=== PATIENT | female | born 1990 | race Caucasian/White ===

== ENCOUNTER 2016-04-24 18:03 | Emergency (ER) | payer OTHER ==
[2016-04-24 18:09] VITALS: BP 153/90; PULSE 89; RESP 17; TEMP 99.7
--- NOTE | 2016-04-24 19:15 | ED ---
General Adult HPI - General Chief complaint: ENT Stated complaint: FB IN LEFT EAR Time Seen by Provider: 04/24/16 19:09 Source: patient, RN notes reviewed Mode of arrival: ambulatory Limitations: no limitations - History of Present Illness Initial comments: This is a 25yo female who presents with a garlic clove stuck in the left ear. Patient states she puts garlic in her ear every month to prevent ear infections as she gets ear infections frequently. Patient states she fell asleep with the garlic in her ear and it's now stuck. Patient states she's had mild fevers over the past couple of days due to an ear infection. Patient has not been on antibiotics and was trying to avoid antibiotics by putting garlic in her ear. Patient notes pain in the left ear but denies cough, congestion, sore throat or headache. Patient denies any recent shortness breath, chest pain, abdominal pain, nausea/vomiting/diarrhea, back pain, numbness, tingling, hematuria, or visual changes, or any other complaints. - Related Data Home Medications Medication Instructions Recorded Confirmed HYDROcodone/APAP 5-325MG [[place] 1 tab PO Q6HR PRN 03/03/16 03/06/16 5-325] Previous Rx's Medication Instructions Recorded Docusate [Colace] 100 mg PO BID #28 capsule 03/06/16 HYDROcodone/APAP 10-325MG [[place] 1 tab PO Q6H PRN #50 tab 03/06/16 10-325] Amoxicillin 1,000 mg PO Q8H 10 Days 04/24/16 Ofloxacin 0.3% Otic Soln [Floxin 10 drops LEFT EAR BID 7 Days 04/24/16 0.3% Otic Soln] Allergies Allergy/AdvReac Type Severity Reaction Status Date / Time No Known Allergies Allergy Verified 03/03/16 09:13 Review of Systems ROS Statement: Those systems with pertinent positive or pertinent negative responses have been documented in the HPI. ROS Other: All systems not noted in ROS Statement are negative. Past Medical History Past Medical History: Supraventricular Tachycardia (SVT) Additional Past Medical History / Comment(s): fx left ankle- slipped on ice -has splint and using crutches History of Any Multi-Drug Resistant Organisms: None Reported Past Surgical History: Adenoidectomy, Ear Surgery, Heart Catheterization, Tonsillectomy Past Anesthesia/Blood Transfusion Reactions: No Reported Reaction Past Psychological History: Anxiety Smoking Status: Former smoker Past Alcohol Use History: Occasional Additional Past Alcohol Use History / Comment(s): quit smoking 2014, smoked for 8 yrs, < 1 PPD Past Drug Use History: None Reported - Past Family History Mother Family Medical History: Cancer General Exam - General Exam Comments Initial Comments: General: The patient is awake and alert, in no distress, and does not appear acutely ill. Eye: Pupils are equal, round and reactive to light, extra-ocular movements are intact. No nystagmus. There is normal conjunctiva bilaterally. No signs of icterus. Ears: Left tympanic membrane: There is a garlic clove stuck in the external ear canal. No drainage or blood noticed. Left tympanic membrane unable to be visualized due to foreign body. Right tympanic membrane: TM pink and pearly with intact cone of light bilaterally. Normal external ear canal on the right side. Nose: Nasal turbinates pink and moist Mouth and throat: There are moist mucous membranes and no oral lesions. Neck: The neck is supple, there is no tenderness or JVD. Cardiovascular: There is a regular rate and rhythm. No murmur, rub or gallop is appreciated. Respiratory: Lungs are clear to auscultation, respirations are non-labored, breath sounds are equal. No wheezes, stridor, rales, or rhonchi. Musculoskeletal: Normal ROM, no tenderness. Strength 5/5. Sensation intact. Radial Pulses equal bilaterally 2+. Neurological: A&O x 3. CN II-XII intact, There are no obvious motor or sensory deficits. Coordination appears grossly intact. Speech is normal. Skin: Skin is warm and dry and no rashes or lesions are noted. Psychiatric: Cooperative, appropriate mood & affect, normal judgment. Limitations: no limitations Course Vital Signs 04/24/16 18:06 Temperature 99.7 F H Pulse Rate 89 Respiratory 17 Rate Blood Pressure 153/90 O2 Sat by Pulse 97 Oximetry Medical Decision Making - Medical Decision Making This is a 25yo female presents with a garlic stuck in the left ear since last night. On physical exam Left tympanic membrane: There is a garlic clove stuck in the external ear canal. No drainage or blood noticed. Left tympanic membrane unable to be visualized due to foreign body. Right tympanic membrane: TM pink and pearly with intact cone of light bilaterally. Normal external ear canal on the right side. Patient has a mild fever in the EC today. After attempts at ear irrigation, alligator forceps and curettes the foreign body is unable to be removed. I discussed that patient will need to follow up with ENT on Wednesday. In the meantime I discussed that patient should flush her ear out several times per day over the weekend. Discussed that patient will be given a prescription for Floxin otic drops and oral amoxicillin. I discussed Tylenol and Motrin for pain. I discussed with patient that she should no longer a garlic in her ear. Discussed return parameters.Discussed that patient should follow up with PCP in one to 2 days or return to the EC for any worsening symptoms or for any further concerns. Patient was receptive to this plan and patient will be discharged home. I discussed his case with attending physician Dr. Montes who agrees the plan as stated above. Disposition Clinical Impression: Foreign body in ear Disposition: HOME SELF-CARE Condition: Good Instructions: Ear Foreign Body (ED) Additional Instructions: Please finish entire course of antibiotics and use eardrops as prescribed. Please use Tylenol or Motrin as needed for any pain or fever symptoms. Please follow-up with ENT on Wednesday. Over the weekend please rinse the ear several times per day while in the shower or with normal saline. Please use medication as discussed. Please follow-up with family doctor in the next 2 days of symptoms have not improved. Please return to emergency room if the symptoms increase or worsen or for any other concerns. Prescriptions: Amoxicillin 1,000 mg PO Q8H 10 Days Ofloxacin 0.3% Otic Soln [Floxin 0.3% Otic Soln] 10 drops LEFT EAR BID 7 Days Referrals: Gallo Moreno MD [Primary Care Provider] - 1-2 days Cr Sherman MD [STAFF PHYSICIAN] - 1-2 days Time of Disposition: 20:09
== END 2016-04-24 20:16 | disposition home or self-care (01) ==
LOC: EC 18:03
DX: T16.2XXA Foreign body in left ear, initial encounter (principal); I47.1 Supraventricular tachycardia; Z98.61 Coronary angioplasty status; Z87.891 Personal history of nicotine dependence
CPT/HCPCS: 99283

== ENCOUNTER 2017-05-06 10:50 | Emergency (ER) | payer OTHER ==
[2017-05-06 10:55] VITALS: RESP 18
--- NOTE | 2017-05-06 11:26 | ED ---
General Adult HPI - General Chief complaint: Extremity Injury, Lower Stated complaint: Ankle pain Time Seen by Provider: 05/06/17 10:55 Source: patient, family, RN notes reviewed Mode of arrival: ambulatory Limitations: no limitations - History of Present Illness Initial comments: This is a 26-year-old female presents emergency Department complaining of right ankle pain. Patient states it was last night and today there was blood around the ankle on the medial and lateral aspect. Patient denies any foot pain. Patient denies any knee pain or upper leg pain. She denies any other injury at this time. - Related Data Previous Rx's Medication Instructions Recorded Acetaminophen with Codeine 1 each PO Q4H #20 tab 05/06/17 [Tylenol w/codeine #3] Ibuprofen [Motrin] 600 mg PO Q6HR PRN #20 tab 05/06/17 Allergies Allergy/AdvReac Type Severity Reaction Status Date / Time No Known Allergies Allergy Verified 05/06/17 11:01 Review of Systems ROS Statement: Those systems with pertinent positive or pertinent negative responses have been documented in the HPI. ROS Other: All systems not noted in ROS Statement are negative. Past Medical History Past Medical History: Supraventricular Tachycardia (SVT) Additional Past Medical History / Comment(s): fx left ankle- slipped on ice -has splint and using crutches History of Any Multi-Drug Resistant Organisms: None Reported Past Surgical History: Adenoidectomy, Ear Surgery, Heart Catheterization, Tonsillectomy Past Anesthesia/Blood Transfusion Reactions: No Reported Reaction Past Psychological History: Anxiety Smoking Status: Current some day smoker Past Alcohol Use History: Occasional Past Drug Use History: None Reported - Past Family History Mother Family Medical History: Cancer General Exam - General Exam Comments Initial Comments: GENERAL Patient is well-developed and well-nourished. Patient is in mild distress. EYES Patient's pupils are equal and round. Extraocular motion is intact SKIN Unremarkable NEURO The patient is alert and oriented 3 PYSCH Patient has normal interpersonal interactions. MUSCULOSKELETAL Patient's ankle is tender medially and laterally is some mild swelling bilaterally patient does have some ecchymosis around the lateral medial malleolus. Limitations: no limitations Course Vital Signs 05/06/17 05/06/17 10:53 12:28 Temperature 95.6 F L 98 F Pulse Rate 76 78 Respiratory 18 18 Rate Blood Pressure 142/67 130/59 O2 Sat by Pulse 97 97 Oximetry Procedures - Orthopedic Splinting/Casting Injury #1 Side: right Lower Extremity Injury Location: short leg, ankle, foot Lower Extremity Immobilizer: posterior splint Medical Decision Making - Medical Decision Making X-ray of the ankle shows no acute abnormality. X-ray of the foot however does show a small avulsion fracture of the fifth metatarsal. Disposition Clinical Impression: Fracture of fifth metatarsal bone Disposition: HOME SELF-CARE Condition: Good Instructions: Foot Fracture in Adults (ED) Additional Instructions: Patient should be nonweightbearing. Prescriptions: Acetaminophen with Codeine [Tylenol w/codeine #3] 1 each PO Q4H #20 tab Ibuprofen [Motrin] 600 mg PO Q6HR PRN #20 tab PRN Reason: For pain Referrals: Ivis Vásquez DO [Doctor of Osteopathic Medicine] - 1-2 days Time of Disposition: 12:52
--- NOTE | 2017-05-06 11:39 | XR ---
EXAMINATION TYPE: XR ankle complete RT DATE OF EXAM: 05/06/2017 COMPARISON: NONE HISTORY: Pain TECHNIQUE: Frontal, lateral and oblique images of the right ankle are obtained. COMPARISON: None. FINDINGS: There is no acute fracture/dislocation evident. The joint spaces appear within normal ahmadi its. Lateral soft tissue swelling noted. IMPRESSION: There is no acute fracture or dislocation seen.
--- NOTE | 2017-05-06 12:21 | XR ---
EXAMINATION TYPE: XR foot complete RT DATE OF EXAM: 05/06/2017 CLINICAL HISTORY: pain TECHNIQUE: Frontal, lateral and oblique images of the right foot are obtained. COMPARISON: None. FINDINGS: Suspect nondisplaced fracture at the lateral base of the fifth metatarsal. Correlate with p oint tenderness. The joint spaces appear within normal limits. The overlying soft tissue appears un remarkable. IMPRESSION: Suspect nondisplaced fracture at the lateral base of the fifth metatarsal. Correlate with david rain rnelenita. ICD 10 closed FRACTURE, INITIAL EVALUATION
[2017-05-06 12:29] VITALS: BP 130/59; PULSE 78; TEMP 98
== END 2017-05-06 13:13 | disposition home or self-care (01) ==
LOC: EC 10:50
DX: S92.351A Displaced fracture of fifth metatarsal bone, right foot, initial encounter for closed fracture (principal); S90.01XA Contusion of right ankle, initial encounter; F17.200 Nicotine dependence, unspecified, uncomplicated; W10.9XXA Fall (on) (from) unspecified stairs and steps, initial encounter; Y93.89 Activity, other specified
CPT/HCPCS: 29515; 99283

== ENCOUNTER 2017-05-30 21:40 | Emergency (ER) | payer OTHER ==
[2017-05-30 21:51] VITALS: TEMP 98.2
[2017-05-30] MEDS ORDERED: IBUPROFEN 600 MG TAB PO STA (22:25)
--- NOTE | 2017-05-30 22:28 | ED ---
General Adult HPI - General Chief complaint: Extremity Injury, Lower Stated complaint: ankle injury Time Seen by Provider: 05/30/17 22:08 Source: patient, RN notes reviewed Mode of arrival: ambulatory Limitations: no limitations - History of Present Illness Initial comments: 26-year-old female presents to the emergency department for a chief complaint of right ankle pain. Patient states that earlier today she was helping her boyfriend clean his car when she stepped on a hose and twisted her ankle. Patient states she was seen in the emergency room she weeks ago for a sprain of the same ankle. Patient states she has full sensation in the ankle. She states she has pain when bearing weight on the right lower extremity in the ankle. Patient denies hitting her head in the fall. Patient had ibuprofen about 8 hours ago and Tylenol about 5 hours ago. She states they helped minimally with the pain. Patient denies any pain in the knee or hip on the right extremity. On 05/06/2017 patient presented to the emergency department for pain in the ankle after she rolled it. The radiologist read as a fracture of the fifth metatarsal. However she states she went to the orthopedic doctor and he said there was no fracture. she was instructed to wear the fracture boot for 2 weeks. She currently brought the fracture boot to the emergency department with her. - Related Data Home Medications Medication Instructions Recorded Confirmed Acetaminophen [Tylenol] 975 mg PO DAILY PRN 05/30/17 05/30/17 Ibuprofen [Motrin Ib] 400 mg PO Q6HR PRN 05/30/17 05/30/17 Previous Rx's Medication Instructions Recorded Acetaminophen-Codeine 300-30mg 1 tab PO Q6HR PRN #14 tablet 05/30/17 [Tylenol #3] Allergies Allergy/AdvReac Type Severity Reaction Status Date / Time No Known Allergies Allergy Verified 05/30/17 21:58 Review of Systems ROS Statement: Those systems with pertinent positive or pertinent negative responses have been documented in the HPI. ROS Other: All systems not noted in ROS Statement are negative. Past Medical History Past Medical History: Supraventricular Tachycardia (SVT) Additional Past Medical History / Comment(s): fx left ankle- slipped on ice -has splint and using crutches History of Any Multi-Drug Resistant Organisms: None Reported Past Surgical History: Adenoidectomy, Ear Surgery, Heart Catheterization, Tonsillectomy Past Anesthesia/Blood Transfusion Reactions: No Reported Reaction Past Psychological History: Anxiety Smoking Status: Current some day smoker Past Alcohol Use History: Occasional Past Drug Use History: None Reported - Past Family History Mother Family Medical History: Cancer General Exam Limitations: no limitations Respiratory exam: Present: normal lung sounds bilaterally. Absent: respiratory distress, wheezes, rales, rhonchi, stridor Cardiovascular Exam: Present: regular rate, normal rhythm, normal heart sounds. Absent: systolic murmur, diastolic murmur, rubs, gallop, clicks Extremities exam: Present: tenderness (Tenderness to the lateral malleolus of the right ankle and lateral right foot), normal capillary refill (Refill less than 2 seconds in lower extremities bilaterally), other (Pedal pulses 2+ in the lower extremities bilaterally. Neurovascular intact. Patient can move all toes and has full sensation in all toes and the right foot. Cap refill less than 2 seconds. Pedal pulse 2+.). Absent: full ROM (Limited flexion and extension of the right ankle.), pedal edema, joint swelling (There is mild swelling of the lateral right foot and ankle.), calf tenderness Course Vital Signs 05/30/17 21:48 Temperature 98.2 F Pulse Rate 100 Respiratory 16 Rate Blood Pressure 135/60 O2 Sat by Pulse 98 Oximetry Medical Decision Making - Medical Decision Making 26-year-old female presents to the emergency department for a chief complaint of right ankle pain. Patient states she was working on cleaning a car when she walked the greatest at the hose. She rolled her ankle. She states she was seen in the emergency department 2 weeks ago for a sprain of the same ankle. Patient tried ibuprofen and Tylenol with minimal relief. Her last dose of ibuprofen was 8 hours ago so she will be given another dose in the emergency department. Patient was given ice to put on the lower extremity. An x-ray of the right foot and ankle was ordered. 3 view right foot x-ray shows no fracture or dislocation. Three-view right ankle x-ray shows no fracture or dislocation. Mild soft tissue swelling is noted. Patient will continue to wear the fracture boot for the next few days. If pain persists past the next few days patient is instructed to follow-up with the orthopedist she saw a month ago. Patient will take ibuprofen and Tylenol 3 for pain relief. She was instructed to use ibuprofen first-line and if pain is severe to take Tylenol 3. Patient was educated on Rice. She was told to rest the foot as much as possible and ice it intermittently throughout the day. She will also elevate it whenever possible. She will return to the emergency Department if she develops worsening symptoms. Disposition Clinical Impression: Ankle pain, right Disposition: HOME SELF-CARE Condition: Good Instructions: Foot Sprain (ED), RICE Therapy (ED) Additional Instructions: Please take ibuprofen for pain relief. You may take Tylenol 3 if pain is severe. Please rest the foot as much as possible and keep it elevated. He may also ice it for pain relief. Please wear fracture boot for the next few days. If you still have pain after the next few days follow-up with orthopedics. Prescriptions: Acetaminophen-Codeine 300-30mg [Tylenol #3] 1 tab PO Q6HR PRN #14 tablet PRN Reason: Pain Referrals: Gallo Moreno MD [Primary Care Provider] - 1-2 days Time of Disposition: 22:44
--- NOTE | 2017-05-30 22:28 | XR ---
EXAMINATION TYPE: XR ankle complete RT DATE OF EXAM: 05/30/2017 COMPARISON: 05/06/2017 HISTORY: Pain TECHNIQUE: 3 views FINDINGS: I see no fracture nor dislocation. There is mild soft tissue swelling around the ankle join t. Joint spaces are normal. IMPRESSION: Mild soft tissue swelling similar to old exam. No fracture.
--- NOTE | 2017-05-30 22:29 | XR ---
EXAMINATION TYPE: XR foot complete RT DATE OF EXAM: 05/30/2017 COMPARISON: 05/06/2017 HISTORY: Pain TECHNIQUE: 3 views FINDINGS: I see no fracture nor dislocation. Metatarsals are intact. Joint spaces are normal. There a re no erosions. IMPRESSION: Negative right foot exam.
[2017-05-30 23:09] VITALS: BP 137/85; PULSE 83; RESP 18
== END 2017-05-30 23:09 | disposition home or self-care (01) ==
LOC: EC 21:40
DX: M25.571 Pain in right ankle and joints of right foot (principal); M79.89 Other specified soft tissue disorders; F17.200 Nicotine dependence, unspecified, uncomplicated; Z87.81 Personal history of (healed) traumatic fracture; Z98.890 Other specified postprocedural states; W18.30XA Fall on same level, unspecified, initial encounter; X50.1XXA Overexertion from prolonged static or awkward postures, initial encounter; Y93.89 Activity, other specified; Y92.89 Other specified places as the place of occurrence of the external cause
CPT/HCPCS: 99283

== ENCOUNTER 2017-12-28 17:44 | Emergency (ER) | payer OTHER ==
[2017-12-28] MEDS ORDERED: SODIUM CHLORIDE 0.9% 1,000 ML IV STA (18:31)
[2017-12-28] MEDS ORDERED: ACETAMINOPHEN TAB 500 MG TAB PO STA (18:38)
[2017-12-28] MEDS ORDERED: KETOROLAC 30 MG/ML 1 ML VIAL IVP STA (18:43)
--- NOTE | 2017-12-28 18:44 | ED ---
General Adult HPI - General Chief complaint: Upper Respiratory Infection Stated complaint: congestion/SOB Time Seen by Provider: 12/28/17 18:14 Source: patient, RN notes reviewed Mode of arrival: ambulatory Limitations: no limitations - History of Present Illness Initial comments: 27-year-old female with a past medical history of SVT corrected when she was a child presents to the emergency department for a chief complaint of shortness of breath times one day. Patient states she has had a cough for about 3 weeks. She denies any productivity of the cough. She admits to a history of asthma as a child but denies any symptoms as an adult. Patient states she smokes about one cigarette per week. Patient states she feels a sharp chest pain in the middle of her chest that is worse when taking a deep breath. She denies any radiation of the pain. Patient states she also feels a chest pressure. Patient states this all started about 7 hours ago. She states she has shortness of breath when walking up the stairs earlier today. She states she has also had congestion with a cough. Patient denies any recent hospitalizations, surgeries, travel outside of the [facility], leg swelling, oral contraceptives. She states she did have SVT but this was corrected with surgery as a child. Patient has no other complaints at this time includingabdominal pain, nausea or vomiting, headache, or visual changes. - Related Data Home Medications Medication Instructions Recorded Confirmed Acetaminophen [Tylenol] 1,000 mg PO Q4-6H PRN 12/28/17 12/28/17 Dayquill 5 mg PO BID PRN 12/28/17 12/28/17 Meloxicam [Mobic] 15 mg PO DAILY 12/28/17 12/28/17 Sertraline HCl [Zoloft] 100 mg PO DAILY 12/28/17 12/28/17 tiZANidine HCL [Zanaflex] 4 mg PO HS PRN 12/28/17 12/28/17 traZODone HCL 100 mg PO HS 12/28/17 12/28/17 Previous Rx's Medication Instructions Recorded Azithromycin [Zithromax Z-pack] 250 mg PO DIRECTED #6 tab 12/28/17 predniSONE 50 mg PO DAILY #5 tablet 12/28/17 Allergies Allergy/AdvReac Type Severity Reaction Status Date / Time No Known Allergies Allergy Verified 12/28/17 19:03 Review of Systems ROS Statement: Those systems with pertinent positive or pertinent negative responses have been documented in the HPI. ROS Other: All systems not noted in ROS Statement are negative. Past Medical History Past Medical History: Supraventricular Tachycardia (SVT) Additional Past Medical History / Comment(s): fx left ankle- slipped on ice -has splint and using crutches History of Any Multi-Drug Resistant Organisms: None Reported Past Surgical History: Adenoidectomy, Ear Surgery, Heart Catheterization, Orthopedic Surgery, Tonsillectomy Past Anesthesia/Blood Transfusion Reactions: No Reported Reaction Past Psychological History: Anxiety, Depression Smoking Status: Current some day smoker Past Alcohol Use History: Occasional Past Drug Use History: None Reported - Past Family History Mother Family Medical History: Cancer General Exam Limitations: no limitations General appearance: alert, in no apparent distress Head exam: Present: atraumatic, normocephalic, normal inspection Eye exam: Present: normal appearance, PERRL, EOMI. Absent: scleral icterus, conjunctival injection, periorbital swelling ENT exam: Present: normal exam, normal oropharynx (Uvula midline, non- erythematous, no tonsillar exudates noted bilaterally), mucous membranes moist, TM's normal bilaterally, normal external ear exam Neck exam: Present: normal inspection, full ROM. Absent: tenderness, meningismus, lymphadenopathy Respiratory exam: Present: normal lung sounds bilaterally. Absent: respiratory distress, wheezes (No wheezing noted bilaterally), rales, rhonchi, stridor Cardiovascular Exam: Present: regular rate, normal rhythm, normal heart sounds. Absent: systolic murmur, diastolic murmur, rubs, gallop, clicks Neurological exam: Present: alert, oriented X3, CN II-XII intact Psychiatric exam: Present: normal affect, normal mood Skin exam: Present: warm, dry, intact, normal color. Absent: rash, diaphoretic Course Vital Signs 12/28/17 12/28/17 12/28/17 18:05 18:38 20:52 Temperature 98.8 F 100.0 F H 100.6 F H Pulse Rate 114 H 72 Respiratory 18 16 Rate Blood Pressure 110/73 122/46 O2 Sat by Pulse 98 Oximetry EKG Findings - EKG Comments: EKG Findings:: Normal sinus rhythm, ventricular rate 92, ID interval 124, QTC 417 Medical Decision Making - Medical Decision Making 27 her old female since to the emergency department for a chief complaint of shortness of breath times one day. Patient has had a cough for about 3 weeks. She also complains of chest pain and pressure worse with inspiration. On presentation patient's vital signs showed a heart rate of 114. Patient has a low-grade fever of 100.0. Otherwise vitals are within normal limits. On exam patient's lungs are clear to auscultation bilaterally. There is no evidence of wheezing. CBC and CMP unremarkable. AST and ALT slightly elevated so patient will follow up with primary care for this. Urine was ordered and culture was sent. Due to patient's tachycardia 114 as well as her complaint of pleuritic chest pain d-dimer was ordered which was 4.64. CT chest showed no evidence for a pulmonary embolism. Chest x-ray showed no acute process. Lungs bases are clear. At this time patient will be treated with azithromycin as she has had a cough for 3 weeks. She will also be given a steroid to help with her symptoms. This is likely a viral upper respiratory infection. She will follow up with primary care in 1-2 days and return if she has any worsening symptoms. This case discussed with Dr. Escamilla. - Lab Data Result diagrams: 12/28/17 19:03 12/28/17 19:03 Lab Results 12/28/17 12/28/17 12/28/17 Range/Units 19:03 19:03 19:03 WBC 8.8 (3.8-10.6) k/uL RBC 5.00 (3.80-5.40) m/uL Hgb 13.5 (11.4-16.0) gm/dL Hct 41.5 (34.0-46.0) % MCV 83.1 (80.0-100.0) fL MCH 27.1 (25.0-35.0) pg MCHC 32.6 (31.0-37.0) g/dL RDW 13.7 (11.5-15.5) % Plt Count 215 (150-450) k/uL Neutrophils % 75 % Lymphocytes % 18 % Monocytes % 4 % Eosinophils % 1 % Basophils % 0 % Neutrophils # 6.6 (1.3-7.7) k/uL Lymphocytes # 1.6 (1.0-4.8) k/uL Monocytes # 0.4 (0-1.0) k/uL Eosinophils # 0.1 (0-0.7) k/uL Basophils # 0.0 (0-0.2) k/uL D-Dimer (<0.60) mg/L FEU Sodium 138 (137-145) mmol/L Potassium 3.9 (3.5-5.1) mmol/L Chloride 106 (98-107) mmol/L Carbon Dioxide 27 (22-30) mmol/L Anion Gap 5 mmol/L BUN 7 (7-17) mg/dL Creatinine 0.71 (0.52-1.04) mg/dL Est GFR (CKD-EPI)AfAm >90 (>60 ml/min/1.73 sqM) Est GFR (CKD-EPI)NonAf >90 (>60 ml/min/1.73 sqM) Glucose 102 H (74-99) mg/dL Plasma Lactic Acid Gavin 1.1 (0.7-2.0) mmol/L Calcium 8.4 (8.4-10.2) mg/dL Total Bilirubin 0.3 (0.2-1.3) mg/dL AST 185 H (14-36) U/L ALT 279 H (9-52) U/L Alkaline Phosphatase 59 (38-126) U/L Total Protein 5.2 L (6.3-8.2) g/dL Albumin 2.9 L (3.5-5.0) g/dL Urine Color Urine Appearance (Clear) Urine pH (5.0-8.0) Ur Specific [place] (1.001-1.035) Urine Protein (Negative) Urine Glucose (UA) (Negative) Urine Ketones (Negative) Urine Blood (Negative) Urine Nitrite (Negative) Urine Bilirubin (Negative) Urine Urobilinogen (<2.0) mg/dL Ur Leukocyte Esterase (Negative) Urine WBC (0-5) /hpf Ur Squamous Epith Cells (0-4) /hpf Urine Bacteria (None) /hpf Urine Mucus (None) /hpf Urine HCG, Qual (Not Detectd) 12/28/17 12/28/17 12/28/17 Range/Units 19:03 19:30 19:30 WBC (3.8-10.6) k/uL RBC (3.80-5.40) m/uL Hgb (11.4-16.0) gm/dL Hct (34.0-46.0) % MCV (80.0-100.0) fL MCH (25.0-35.0) pg MCHC (31.0-37.0) g/dL RDW (11.5-15.5) % Plt Count (150-450) k/uL Neutrophils % % Lymphocytes % % Monocytes % % Eosinophils % % Basophils % % Neutrophils # (1.3-7.7) k/uL Lymphocytes # (1.0-4.8) k/uL Monocytes # (0-1.0) k/uL Eosinophils # (0-0.7) k/uL Basophils # (0-0.2) k/uL D-Dimer 4.64 H (<0.60) mg/L FEU Sodium (137-145) mmol/L Potassium (3.5-5.1) mmol/L Chloride (98-107) mmol/L Carbon Dioxide (22-30) mmol/L Anion Gap mmol/L BUN (7-17) mg/dL Creatinine (0.52-1.04) mg/dL Est GFR (CKD-EPI)AfAm (>60 ml/min/1.73 sqM) Est GFR (CKD-EPI)NonAf (>60 ml/min/1.73 sqM) Glucose (74-99) mg/dL Plasma Lactic Acid Gavin (0.7-2.0) mmol/L Calcium (8.4-10.2) mg/dL Total Bilirubin (0.2-1.3) mg/dL AST (14-36) U/L ALT (9-52) U/L Alkaline Phosphatase (38-126) U/L Total Protein (6.3-8.2) g/dL Albumin (3.5-5.0) g/dL Urine Color Yellow Urine Appearance Cloudy H (Clear) Urine pH 5.5 (5.0-8.0) Ur Specific [place] 1.028 (1.001-1.035) Urine Protein 1+ H (Negative) Urine Glucose (UA) Negative (Negative) Urine Ketones Negative (Negative) Urine Blood Trace H (Negative) Urine Nitrite Negative (Negative) Urine Bilirubin Negative (Negative) Urine Urobilinogen 2.0 (<2.0) mg/dL Ur Leukocyte Esterase Large H (Negative) Urine WBC 23 H (0-5) /hpf Ur Squamous Epith Cells 12 H (0-4) /hpf Urine Bacteria Occasional H (None) /hpf Urine Mucus Occasional H (None) /hpf Urine HCG, Qual Not Detected (Not Detectd) Disposition Clinical Impression: Upper respiratory infection Disposition: HOME SELF-CARE Condition: Good Instructions: Upper Respiratory Infection (ED) Additional Instructions: Please take antibiotic as directed. Please follow-up with primary care in 1-2 days. Return immediately to the emergency department if you have any worsening symptoms. Prescriptions: Azithromycin [Zithromax Z-pack] 250 mg PO DIRECTED #6 tab predniSONE 50 mg PO DAILY #5 tablet Is patient prescribed a controlled substance at d/c from ED?: No Referrals: Gallo Moreno MD [Primary Care Provider] - 1-2 days Time of Disposition: 21:10
[2017-12-28 19:20] LABS: Basophils % (A) 0 %; Eosinophils # (A) 0.1 k/uL (0-0.7); Eosinophils % (A) 1 %; HCT 41.5 % (34.0-46.0); HGB 13.5 gm/dL (11.4-16.0); Lymphocytes # (A) 1.6 k/uL (1.0-4.8); Lymphocytes % (A) 18 %; MCH 27.1 pg (25.0-35.0); MCHC 32.6 g/dL (31.0-37.0); MCV 83.1 fL (80.0-100.0); Mean Platelet Volume 7.1; Monocytes # (A) 0.4 k/uL (0-1.0); Monocytes % (A) 4 %; Neutrophils # (A) 6.6 k/uL (1.3-7.7); Neutrophils % (A) 75 %; Platelet Count 215 k/uL (150-450); RDW 13.7 % (11.5-15.5); WBC 8.8 k/uL (3.8-10.6)
[2017-12-28 19:30] LABS: ALT 279 U/L (9-52); AST 185 U/L (14-36); Albumin 2.9 g/dL (3.5-5.0); Alkaline Phosphatase 59 U/L (38-126); Anion Gap 5 mmol/L; Blood Urea Nitrogen 7 mg/dL (7-17); Calcium 8.4 mg/dL (8.4-10.2); Carbon Dioxide 27 mmol/L (22-30); Chloride 106 mmol/L (98-107); Glucose 102 mg/dL (74-99); Potassium 3.9 mmol/L (3.5-5.1); Sodium 138 mmol/L (137-145); Total Bilirubin 0.3 mg/dL (0.2-1.3); Total Protein 5.2 g/dL (6.3-8.2)
[2017-12-28 19:45] LABS: Appearance,Urine Cloudy (Clear); Bacteria,Urine Occasional /hpf; Bilirubin,Urine Negative (Negative); Blood,Urine Trace (Negative); Color,Urine Yellow; Glucose,Urine (UA) Negative (Negative); Ketones,Urine Negative (Negative); Leukocyte Esterase,Urine Large (Negative); Mucus,Urine Occasional /hpf; Nitrite,Urine Negative (Negative); PH, Urine 5.5 (5.0-8.0); Protein,Urine 1+ (Negative); Specific Gravity,Urine 1.028 (1.001-1.035); Squamous Epithelial Cell,Urine 12 /hpf (0-4); WBC,Urine 23 /hpf (0-5)
--- NOTE | 2017-12-28 20:45 | CT ---
EXAMINATION TYPE: CT chest angio for PE with contrast and with 3-D reconstruction renderings DATE OF EXAM: 12/28/2017 COMPARISON: None. HISTORY: Mid chest pain and shortness of breath. CT DLP: 600.7 mGycm. Automated exposure control for dose reduction was used. CONTRAST: CT Chest for pulmonary embolism performed with with IV Contrast, patient injected with 65 m L of Isovue 370. 3-D reconstructions. FINDINGS: LUNGS: The lungs are grossly clear, there is no concerning parenchymal mass or nodule identified. T here is no pleural effusion or pneumothorax seen. The tracheobronchial tree is patent. MEDIASTINUM: There is moderate enhancement of the pulmonary artery and its branches; there is no CT e vidence for pulmonary embolism. There are no greater than 1 cm hilar or mediastinal lymph nodes. No c ardiomegaly. No pericardial effusion. OTHER: No additional significant abnormality is seen. IMPRESSION: NO ACUTE PROCESS.
[2017-12-28 20:54] VITALS: BP 122/46; PULSE 72; RESP 16; TEMP 100.6
--- NOTE | 2017-12-28 20:55 | XR ---
EXAMINATION: XR chest 2V DATE AND TIME: 12/28/2017 7:39 PM CLINICAL INDICATION: Pain TECHNIQUE: PA and lateral COMPARISON: 05/22/2005 FINDINGS: The overlying soft tissues are prominent. The lungs appear clear. The pleural spaces are negative. The cardiac silhouette is not enlarged. The remainder of the mediastinal silhouette is unremarkable. The skeletal structures and soft tissues are negative for acute findings. IMPRESSION: NO ACUTE PROCESS.
== END 2017-12-28 21:27 | disposition home or self-care (01) ==
LOC: EC 17:44
DX: J06.9 Acute upper respiratory infection, unspecified (principal); R00.0 Tachycardia, unspecified; F41.9 Anxiety disorder, unspecified; F32.9 Major depressive disorder, single episode, unspecified; F17.210 Nicotine dependence, cigarettes, uncomplicated; Z98.890 Other specified postprocedural states; Z79.1 Long term (current) use of non-steroidal anti-inflammatories (NSAID); Z79.899 Other long term (current) drug therapy
CPT/HCPCS: 36415; 93005; 85379; 80053; 83605; 85025; 81001; 81025; 87040; 87086; 71046; 71275; J1885; Q9967; 96374; 99285

== ENCOUNTER 2017-12-29 23:38 | Emergency (ER) | payer OTHER ==
[2017-12-30] MEDS ORDERED: SODIUM CHLORIDE 0.9% 1,000 ML IV ONE (01:38)
[2017-12-30] MEDS ORDERED: ONDANSETRON 4 MG/2 ML VIAL IVP STA (01:38)
[2017-12-30 01:56] LABS: Basophils % (A) 0 %; Eosinophils % (A) 0 %; HCT 42.7 % (34.0-46.0); HGB 13.5 gm/dL (11.4-16.0); Lymphocytes % (A) 10 %; MCH 26.9 pg (25.0-35.0); MCHC 31.7 g/dL (31.0-37.0); MCV 84.8 fL (80.0-100.0); Mean Platelet Volume 7.7; Monocytes # (A) 0.3 k/uL (0-1.0); Monocytes % (A) 3 %; Neutrophils # (A) 8.5 k/uL (1.3-7.7); Neutrophils % (A) 85 %; Platelet Count 295 k/uL (150-450); RBC 5.04 m/uL (3.80-5.40); RDW 13.9 % (11.5-15.5)
[2017-12-30 02:06] LABS: ALT 382 U/L (9-52); AST 216 U/L (14-36); Albumin 3.6 g/dL (3.5-5.0); Alkaline Phosphatase 76 U/L (38-126); Anion Gap 10 mmol/L; Blood Urea Nitrogen 8 mg/dL (7-17); Calcium 8.6 mg/dL (8.4-10.2); Carbon Dioxide 21 mmol/L (22-30); Chloride 108 mmol/L (98-107); Glucose 176 mg/dL (74-99); Sodium 139 mmol/L (137-145); Total Bilirubin 0.6 mg/dL (0.2-1.3); Total Protein 6.5 g/dL (6.3-8.2)
[2017-12-30 02:09] LABS: Potassium 4.8 mmol/L (3.5-5.1)
--- NOTE | 2017-12-30 03:50 | ED ---
Nausea/Vomiting/Diarrhea HPI - General Chief complaint: Nausea/Vomiting/Diarrhea Stated complaint: SOB Time Seen by Provider: 12/30/17 00:54 Source: patient Mode of arrival: ambulatory Limitations: no limitations - History of Present Illness Initial comments: This patient is a 27-year-old woman who presents to be evaluated for nausea and vomiting. The patient had been or use of health until a couple of days ago when she started having upper respiratory symptoms and a cough. She was seen here and started on azithromycin. Around 6:30 she started having nausea and vomiting as had a number of episodes since that time. No vomiting of blood or bile. She denies significant abdominal pain now. No change in bowel movements. MD complaint: nausea, vomiting Onset/Timin -: hour(s) Description of Vomiting: food contents Associated Abdominal Pain: No Consistency: constant Improves with: none Worsens with: none Associated Symptoms: cough - Related Data Home Medications Medication Instructions Recorded Confirmed Acetaminophen [Tylenol] 1,000 mg PO Q4-6H PRN 12/28/17 12/30/17 Dayquill 5 mg PO BID PRN 12/28/17 12/30/17 Meloxicam [Mobic] 15 mg PO DAILY 12/28/17 12/30/17 Sertraline HCl [Zoloft] 100 mg PO DAILY 12/28/17 12/30/17 tiZANidine HCL [Zanaflex] 4 mg PO HS PRN 12/28/17 12/30/17 traZODone HCL 100 mg PO HS 12/28/17 12/30/17 Previous Rx's Medication Instructions Recorded Azithromycin [Zithromax Z-pack] 250 mg PO DIRECTED #6 tab 12/28/17 predniSONE 50 mg PO DAILY #5 tablet 12/28/17 Ondansetron Odt [Zofran ODT] 4 mg PO Q8HR PRN #10 tab 12/30/17 Allergies Allergy/AdvReac Type Severity Reaction Status Date / Time No Known Allergies Allergy Verified 12/28/17 19:03 Review of Systems ROS Statement: Those systems with pertinent positive or pertinent negative responses have been documented in the HPI. ROS Other: All systems not noted in ROS Statement are negative. Constitutional: Denies: fever, chills ENT: Reports: congestion Respiratory: Reports: cough. Denies: dyspnea Cardiovascular: Denies: chest pain, palpitations, edema Gastrointestinal: Reports: nausea, vomiting. Denies: abdominal pain, diarrhea, constipation Genitourinary: Denies: dysuria, hematuria Musculoskeletal: Denies: back pain Skin: Denies: rash Neurological: Denies: headache, weakness, numbness Past Medical History Past Medical History: Supraventricular Tachycardia (SVT) Additional Past Medical History / Comment(s): fx left ankle- slipped on ice -has splint and using crutches History of Any Multi-Drug Resistant Organisms: None Reported Past Surgical History: Adenoidectomy, Ear Surgery, Heart Catheterization, Orthopedic Surgery, Tonsillectomy Past Anesthesia/Blood Transfusion Reactions: No Reported Reaction Past Psychological History: Anxiety, Depression Smoking Status: Current some day smoker Past Alcohol Use History: Occasional Past Drug Use History: None Reported - Past Family History Mother Family Medical History: Cancer General Exam Limitations: no limitations General appearance: alert, in no apparent distress, obese Head exam: Present: atraumatic, normocephalic Eye exam: Present: normal appearance. Absent: scleral icterus, conjunctival injection ENT exam: Present: normal oropharynx Respiratory exam: Present: normal lung sounds bilaterally. Absent: respiratory distress, wheezes, rales, rhonchi, stridor Cardiovascular Exam: Present: regular rate, normal rhythm, normal heart sounds. Absent: systolic murmur, diastolic murmur, rubs, gallop GI/Abdominal exam: Present: soft. Absent: distended, tenderness, guarding, rebound, rigid Extremities exam: Present: normal inspection, normal capillary refill. Absent: pedal edema, calf tenderness Back exam: Present: normal inspection. Absent: CVA tenderness (R), CVA tenderness (L) Neurological exam: Present: alert Skin exam: Present: warm, dry, intact, normal color. Absent: rash Course Vital Signs 12/30/17 12/30/17 00:00 04:01 Temperature 98.3 F 97 F L Pulse Rate 50 L 59 L Respiratory 20 18 Rate Blood Pressure 124/78 119/84 O2 Sat by Pulse 98 97 Oximetry Medical Decision Making - Medical Decision Making Patient is 27-year-old woman presenting with nausea and vomiting after starting azithromycin. The patient's abdominal exam is benign other than the fact she does have elevated transaminases levels. Patient had acute hepatitis profile sent. She is advised to avoid using Tylenol-containing medications. She will follow-up for further transaminases measurements. Patient to see gastroenterology. She is improved following medication. - Lab Data Result diagrams: 12/30/17 00:39 12/30/17 00:39 Lab Results 12/30/17 12/30/17 12/30/17 Range/Units 00:39 00:39 00:39 WBC 10.0 (3.8-10.6) k/uL RBC 5.04 (3.80-5.40) m/uL Hgb 13.5 (11.4-16.0) gm/dL Hct 42.7 (34.0-46.0) % MCV 84.8 (80.0-100.0) fL MCH 26.9 (25.0-35.0) pg MCHC 31.7 (31.0-37.0) g/dL RDW 13.9 (11.5-15.5) % Plt Count 295 (150-450) k/uL Neutrophils % 85 % Lymphocytes % 10 % Monocytes % 3 % Eosinophils % 0 % Basophils % 0 % Neutrophils # 8.5 H (1.3-7.7) k/uL Lymphocytes # 1.0 (1.0-4.8) k/uL Monocytes # 0.3 (0-1.0) k/uL Eosinophils # 0.0 (0-0.7) k/uL Basophils # 0.0 (0-0.2) k/uL Sodium 139 (137-145) mmol/L Potassium 4.8 (3.5-5.1) mmol/L Chloride 108 H (98-107) mmol/L Carbon Dioxide 21 L (22-30) mmol/L Anion Gap 10 mmol/L BUN 8 (7-17) mg/dL Creatinine 0.64 (0.52-1.04) mg/dL Est GFR (CKD-EPI)AfAm >90 (>60 ml/min/1.73 sqM) Est GFR (CKD-EPI)NonAf >90 (>60 ml/min/1.73 sqM) Glucose 176 H (74-99) mg/dL Calcium 8.6 (8.4-10.2) mg/dL Total Bilirubin 0.6 (0.2-1.3) mg/dL AST 216 H (14-36) U/L ALT 382 H (9-52) U/L Alkaline Phosphatase 76 (38-126) U/L Total Protein 6.5 (6.3-8.2) g/dL Albumin 3.6 (3.5-5.0) g/dL Hepatitis A IgM Ab Hep Bs Antigen Non-Reactive (Non-Reactive) Hep B Core IgM Ab Non-Reactive (Non-Reactive) Hep C IgG Ab Non-Reactive (Non-Reactive) 12/30/17 Range/Units 03:58 WBC (3.8-10.6) k/uL RBC (3.80-5.40) m/uL Hgb (11.4-16.0) gm/dL Hct (34.0-46.0) % MCV (80.0-100.0) fL MCH (25.0-35.0) pg MCHC (31.0-37.0) g/dL RDW (11.5-15.5) % Plt Count (150-450) k/uL Neutrophils % % Lymphocytes % % Monocytes % % Eosinophils % % Basophils % % Neutrophils # (1.3-7.7) k/uL Lymphocytes # (1.0-4.8) k/uL Monocytes # (0-1.0) k/uL Eosinophils # (0-0.7) k/uL Basophils # (0-0.2) k/uL Sodium (137-145) mmol/L Potassium (3.5-5.1) mmol/L Chloride (98-107) mmol/L Carbon Dioxide (22-30) mmol/L Anion Gap mmol/L BUN (7-17) mg/dL Creatinine (0.52-1.04) mg/dL Est GFR (CKD-EPI)AfAm (>60 ml/min/1.73 sqM) Est GFR (CKD-EPI)NonAf (>60 ml/min/1.73 sqM) Glucose (74-99) mg/dL Calcium (8.4-10.2) mg/dL Total Bilirubin (0.2-1.3) mg/dL AST (14-36) U/L ALT (9-52) U/L Alkaline Phosphatase (38-126) U/L Total Protein (6.3-8.2) g/dL Albumin (3.5-5.0) g/dL Hepatitis A IgM Ab NEGATIVE Hep Bs Antigen (Non-Reactive) Hep B Core IgM Ab (Non-Reactive) Hep C IgG Ab (Non-Reactive) Disposition Clinical Impression: Viral syndrome, Elevated transaminase level Disposition: HOME SELF-CARE Condition: Good Instructions: Viral Syndrome (ED) Additional Instructions: As we discussed, your transaminase levels are elevated. avoid using any Tylenol- containing products. Follow-up with the plate shop helper as we discussed and these levels rechecked. Prescriptions: Ondansetron Odt [Zofran ODT] 4 mg PO Q8HR PRN #10 tab PRN Reason: Nausea Is patient prescribed a controlled substance at d/c from ED?: No Referrals: Gallo Moreno MD [Primary Care Provider] - 1-2 days Tyler Perez MD [STAFF PHYSICIAN] - 1-2 days
[2017-12-30 04:02] VITALS: BP 119/84; PULSE 59; RESP 18; TEMP 97
[2017-12-30 04:43] LABS: Hepatitis A AB IgM Index 0.01; Hepatitis A Antibody IgM NEGATIVE
[2017-12-30 12:03] LABS: Hepatitis B Core IgM Non-Reactive (Non-Reactive)
--- NOTE | 2017-12-31 01:59 | CDI ---
Dear Isrrael Akins MD: Please do addendum History of Present Illness and Physical Examination. Thank you, Hayde Antony, Manufactured Buildings Repairer. If you have any questions, please contact Termite Helper at [phone]. [employer]
== END 2017-12-30 04:02 | disposition home or self-care (01) ==
LOC: EC 23:38
DX: B34.9 Viral infection, unspecified (principal); R74.0 Nonspecific elevation of levels of transaminase and lactic acid dehydrogenase [LDH]; F32.9 Major depressive disorder, single episode, unspecified; F41.9 Anxiety disorder, unspecified; F17.200 Nicotine dependence, unspecified, uncomplicated; Z79.1 Long term (current) use of non-steroidal anti-inflammatories (NSAID); Z79.899 Other long term (current) drug therapy; Z90.89 Acquired absence of other organs; Z86.79 Personal history of other diseases of the circulatory system; Z95.818 Presence of other cardiac implants and grafts
CPT/HCPCS: 36415; 80053; 80074; 85025; 99284; 96374; 96361 ×2; J2405

== ENCOUNTER 2018-08-22 12:59 | Emergency (ER) | payer OTHER ==
[2018-08-22 13:11] VITALS: RESP 18
--- NOTE | 2018-08-22 14:07 | ED ---
Female Urogenital HPI - General Chief complaint: Abdominal Pain Stated complaint: preg unknown wks, cramping Time Seen by Provider: 08/22/18 14:05 Source: patient, RN notes reviewed, old records reviewed Mode of arrival: ambulatory Limitations: no limitations - History of Present Illness Initial comments: This is a 28-year-old female the ER for evaluation she presents today for evaluation of abdominal pain cramping with that she is secondary to positive at home test. Patient denies bleeding or any other complaints she does have an IUD placed. MD Complaint: pelvic pain -: days(s) Location: suprapubic Radiation: suprapubic Severity: mild Severity scale (1-10): 3 Quality: dull Consistency: constant, intermittent Improves with: none Worsens with: urination Patient : No Associated Symptoms: denies other symptoms - Related Data Sexually active: Yes Home Medications Medication Instructions Recorded Confirmed Sertraline HCl [Zoloft] 100 mg PO DAILY 12/28/17 08/22/18 tiZANidine HCL [Zanaflex] 4 mg PO HS PRN 12/28/17 08/22/18 traZODone HCL 100 mg PO HS 12/28/17 08/22/18 ALPRAZolam [Xanax] 0.25 mg PO DAILY PRN 08/22/18 08/22/18 Previous Rx's Medication Instructions Recorded Cephalexin [Keflex] 500 mg PO Q6HR #20 cap 08/22/18 Allergies Allergy/AdvReac Type Severity Reaction Status Date / Time No Known Allergies Allergy Verified 08/22/18 14:17 Review of Systems ROS Statement: Those systems with pertinent positive or pertinent negative responses have been documented in the HPI. ROS Other: All systems not noted in ROS Statement are negative. Past Medical History Past Medical History: Supraventricular Tachycardia (SVT) Additional Past Medical History / Comment(s): fx left ankle- slipped on ice 02/27/16-has splint and using crutches History of Any Multi-Drug Resistant Organisms: None Reported Past Surgical History: Adenoidectomy, Ear Surgery, Heart Catheterization, Orthopedic Surgery, Tonsillectomy Past Anesthesia/Blood Transfusion Reactions: No Reported Reaction Past Psychological History: Anxiety, Depression Smoking Status: Current some day smoker Past Alcohol Use History: Occasional Past Drug Use History: None Reported - Past Family History Mother Family Medical History: Cancer General Exam Limitations: no limitations General appearance: alert, in no apparent distress Head exam: Present: atraumatic, normocephalic, normal inspection Eye exam: Present: normal appearance, PERRL, EOMI. Absent: scleral icterus, conjunctival injection, periorbital swelling ENT exam: Present: normal exam, mucous membranes moist Neck exam: Present: normal inspection. Absent: tenderness, meningismus, lymphadenopathy Respiratory exam: Present: normal lung sounds bilaterally. Absent: respiratory distress, wheezes, rales, rhonchi, stridor Cardiovascular Exam: Present: regular rate, normal rhythm, normal heart sounds. Absent: systolic murmur, diastolic murmur, rubs, gallop, clicks GI/Abdominal exam: Present: soft, normal bowel sounds. Absent: distended, tenderness, guarding, rebound, rigid Extremities exam: Present: normal inspection, full ROM, normal capillary refill. Absent: tenderness, pedal edema, joint swelling, calf tenderness Back exam: Present: normal inspection Neurological exam: Present: alert, oriented X3, CN II-XII intact Psychiatric exam: Present: normal affect, normal mood Skin exam: Present: warm, dry, intact, normal color. Absent: rash Course Vital Signs 08/22/18 08/22/18 08/22/18 13:08 14:11 17:00 Temperature 98.5 F 98.3 F Pulse Rate 114 H 78 97 Respiratory 18 18 18 Rate Blood Pressure 112/66 118/58 120/64 O2 Sat by Pulse 94 L 99 97 Oximetry Medical Decision Making - Medical Decision Making 28 female to the ED co abd pain and positive for UTI, not can be discharged home - Lab Data Lab Results 08/22/18 08/22/18 08/22/18 Range/Units 14:02 14:02 16:14 HCG, Quant 2.6 mIU/mL Urine Color Yellow Urine Appearance Cloudy H (Clear) Urine pH 6.0 (5.0-8.0) Ur Specific [place] 1.027 (1.001-1.035) Urine Protein Trace H (Negative) Urine Glucose (UA) Negative (Negative) Urine Ketones Negative (Negative) Urine Blood Negative (Negative) Urine Nitrite Positive H (Negative) Urine Bilirubin Negative (Negative) Urine Urobilinogen <2.0 (<2.0) mg/dL Ur Leukocyte Esterase Large H (Negative) Urine RBC 2 (0-5) /hpf Urine WBC 23 H (0-5) /hpf Ur Squamous Epith Cells 10 H (0-4) /hpf Urine Bacteria Many H (None) /hpf Urine Mucus Few H (None) /hpf Urine HCG, Qual Not Detected (Not Detectd) - Radiology Data Radiology results: report reviewed (US negative for acute disease, positive IUD), image reviewed Disposition Clinical Impression: UTI (urinary tract infection) Narrative: Not Pregnanct Disposition: HOME SELF-CARE Condition: Good Instructions (If sedation given, give patient instructions): Urinary Tract Infection in Women (ED) Prescriptions: Cephalexin [Keflex] 500 mg PO Q6HR #20 cap Is patient prescribed a controlled substance at d/c from ED?: No Referrals: Gallo Moreno MD [Primary Care Provider] - 1-2 days
[2018-08-22 14:55] LABS: Appearance,Urine Cloudy (Clear); Bacteria,Urine Many /hpf; Bilirubin,Urine Negative (Negative); Blood,Urine Negative (Negative); Color,Urine Yellow; Glucose,Urine (UA) Negative (Negative); Ketones,Urine Negative (Negative); Leukocyte Esterase,Urine Large (Negative); Mucus,Urine Few /hpf; Nitrite,Urine Positive (Negative); Protein,Urine Trace (Negative); RBC,Urine 2 /hpf (0-5); Specific Gravity,Urine 1.027 (1.001-1.035); Squamous Epithelial Cell,Urine 10 /hpf (0-4); Urobilinogen,Urine <2.0 mg/dL (<2.0); WBC,Urine 23 /hpf (0-5)
[2018-08-22] MEDS ORDERED: CEPHALEXIN 500MG STARTER PACK 4 CAP BTL PO STA (15:26)
[2018-08-22] MEDS ORDERED: CEPHALEXIN 500 MG CAP PO STA (15:26)
[2018-08-22] MEDS ORDERED: cefTRIAXone 250 MG VIAL IM STA (15:26)
--- NOTE | 2018-08-22 15:51 | US ---
EXAMINATION TYPE: US OB <=14 wk transvag DATE OF EXAM: 08/22/2018 3:22 PM COMPARISON: US CLINICAL HISTORY: Pain. pelvic pain with IUD; IUD placed 7 years ago, ; no menses with IUD. Positive beta-hCG. EXAM PERFORMED: Transvaginal (TV) and Transabdominal (TA) EXAM MEASUREMENTS: GESTATIONAL AGE / DATING Physician Established: Not yet established Dates by Current Scan for: No IUP seen at this time MATERNAL ANATOMY Uterus: 6.2 x 4.6 x 3.7cm, retroverted Right Ovary: wnl; Arterial and venous PW Doppler and color flow is seen in bilateral ovary Left Ovary: wnl Post CDS / Adnexa: wnl Presence of free fluid: no Presence of corpus luteal cyst: no IUD is seen in endometrium. GESTATION / SURVEY: No IUP or ectopic is seen. Date of LMP: 2017 (once last year) Beta HcG (if available): NA Heterogeneous retroverted uterus is seen. Metallic central IUD identified. Endometrium measures up to 8 mm in thickness towards the fundus. No gestational sac, yolk sac, or pole. No free fluid in pelvic cul-de-sac. Both ovaries are seen and normal in size. No definitive extraovarian adnexal mass is present. IMPRESSION: Persistent central metallic IUD with positive beta-hCG test developing ectopic must BE strongly considered despite nonvisualization of adnexal extraovarian mass or free fluid in pelvic cul-de-sac. Need to further investigate by serial beta hCG and ultrasound should be based on clinical correlation. MTDD
[2018-08-22 17:10] VITALS: BP 120/64; PULSE 97; TEMP 98.3
[2018-08-23 15:55] LABS: N. gonorrhoeae,PCR Negative (Neg,Equiv); Neisseria Source Urine
[2018-08-23 16:00] LABS: C. trachomatis,PCR Negative (Neg,Equiv); Chlamydia trachomatis Source Urine
== END 2018-08-22 17:15 | disposition home or self-care (01) ==
LOC: EC 12:59
DX: N39.0 Urinary tract infection, site not specified (principal); F41.9 Anxiety disorder, unspecified; F32.9 Major depressive disorder, single episode, unspecified; F17.200 Nicotine dependence, unspecified, uncomplicated; Z79.899 Other long term (current) drug therapy; Z86.79 Personal history of other diseases of the circulatory system; Z95.818 Presence of other cardiac implants and grafts
CPT/HCPCS: 36415; 81001; 81025; 84702; 87491; 87591; 87086; 76801; 76817; 99284; 96372; J0696; 87077; 87186; 93975

== ENCOUNTER 2019-05-23 16:27 | Emergency (ER) | payer OTHER ==
[2019-05-23 16:30] VITALS: TEMP 98.8
[2019-05-23] MEDS ORDERED: IPRATROPIUM-ALBUTEROL 3 ML NEB INHALATION STA (16:39)
[2019-05-23] MEDS ORDERED: ALBUTEROL NEBULIZED 2.5 MG/3 ML INHALATION STA (16:39)
[2019-05-23] MEDS ORDERED: DEXAMETHASONE SOD PHOSPHATE 10 MG/ML 1 ML VIAL IM STA (16:39)
--- NOTE | 2019-05-23 16:47 | ED ---
General Adult HPI - General Chief complaint: Shortness of Breath Stated complaint: SOB, chest pressure Time Seen by Provider: 05/23/19 16:30 Source: patient, RN notes reviewed, old records reviewed Mode of arrival: ambulatory Limitations: no limitations - History of Present Illness Initial comments: 28-year-old female history of childhood asthma, history of SVT presenting with cough and chest congestion. Patient's symptoms have been present for the past 2 or 3 days. She's had some laryngitis and mild sore throat. No rhinorrhea. No fever. No abdominal pain nausea vomiting. Patient denies current . She denies central chest patient does report some chest tightness associated with her cough. She has mild dyspnea. No recent travel. She has not come in contact with a confirmed case of a [place] virus. - Related Data Home Medications Medication Instructions Recorded Confirmed Sertraline HCl [Zoloft] 100 mg PO DAILY 12/28/17 08/22/18 tiZANidine HCL [Zanaflex] 4 mg PO HS PRN 12/28/17 08/22/18 traZODone HCL 100 mg PO HS 12/28/17 08/22/18 ALPRAZolam [Xanax] 0.25 mg PO DAILY PRN 08/22/18 08/22/18 Previous Rx's Medication Instructions Recorded Cephalexin [Keflex] 500 mg PO Q6HR #20 cap 08/22/18 Albuterol Inhaler [Ventolin Hfa 1 - 2 puff INHALATION Q4HR PRN #1 05/23/19 Inhaler] inhaler methylPREDNISolone Dose Pack 4 mg PO DIRECTED #21 package 05/23/19 [Medrol Dose Pack] Allergies Allergy/AdvReac Type Severity Reaction Status Date / Time No Known Allergies Allergy Verified 05/23/19 16:30 Review of Systems ROS Statement: Those systems with pertinent positive or pertinent negative responses have been documented in the HPI. ROS Other: All systems not noted in ROS Statement are negative. Past Medical History Past Medical History: Supraventricular Tachycardia (SVT) Additional Past Medical History / Comment(s): fx left ankle- slipped on ice 02/27/16-has splint and using crutches History of Any Multi-Drug Resistant Organisms: None Reported Past Surgical History: Adenoidectomy, Ear Surgery, Heart Catheterization, Orthopedic Surgery, Tonsillectomy Past Anesthesia/Blood Transfusion Reactions: No Reported Reaction Past Psychological History: Anxiety, Depression Smoking Status: Former smoker Past Alcohol Use History: Occasional Past Drug Use History: None Reported - Past Family History Mother Family Medical History: Cancer General Exam Limitations: no limitations General appearance: alert, in no apparent distress Head exam: Present: atraumatic, normocephalic Eye exam: Present: normal appearance, PERRL ENT exam: Absent: normal oropharynx (Mild pharyngeal erythema) Neck exam: Present: normal inspection. Absent: tenderness, meningismus Respiratory exam: Present: wheezes, decreased breath sounds. Absent: respiratory distress Cardiovascular Exam: Present: regular rate, normal rhythm. Absent: tachycardia GI/Abdominal exam: Present: soft. Absent: distended, tenderness, guarding Neurological exam: Present: alert. Absent: motor sensory deficit Psychiatric exam: Present: normal affect, normal mood Skin exam: Present: warm, dry, intact. Absent: cyanosis, diaphoretic Course Vital Signs 05/23/19 05/23/19 05/23/19 16:28 16:52 17:06 Temperature 98.8 F Pulse Rate 106 H 104 H Respiratory 18 20 Rate Blood Pressure 116/80 O2 Sat by Pulse 97 Oximetry 05/23/19 17:21 Temperature Pulse Rate 102 H Respiratory Rate Blood Pressure O2 Sat by Pulse Oximetry - Reevaluation(s) Reevaluation #1: 05/23/19 17:45 Patient reevaluated after nebulized albuterol, feeling better Medical Decision Making - Medical Decision Making 28-year-old female with cough, chest congestion. Chest x-ray is negative for acute infiltrate. Influenza testing is negative. Patient will be prescribed a course of steroids and albuterol inhaler as she did have some trace wheezing with good air entry bilaterally. No respiratory distress. Given strict return parameters. Please follow up with primary care physician. - Lab Data Lab Results 05/23/19 Range/Units 16:44 Influenza Type A RNA Not Detected (Not Detectd) Influenza Type B (PCR) Not Detected (Not Detectd) Disposition Clinical Impression: Bronchitis Disposition: HOME SELF-CARE Condition: Good Instructions (If sedation given, give patient instructions): Acute Bronchitis (ED) Prescriptions: methylPREDNISolone Dose Pack [Medrol Dose Pack] 4 mg PO DIRECTED #21 package Albuterol Inhaler [Ventolin Hfa Inhaler] 1 - 2 puff INHALATION Q4HR PRN #1 inhaler PRN Reason: Shortness Of Breath Is patient prescribed a controlled substance at d/c from ED?: No Referrals: Gallo Moreno MD [Primary Care Provider] - 1-2 days Time of Disposition: 17:46
--- NOTE | 2019-05-23 17:11 | XR ---
EXAMINATION TYPE: XR chest 2V DATE OF EXAM: 05/23/2019 COMPARISON: 12/28/2017 HISTORY: Chest pain short of breath. Cough. TECHNIQUE: FINDINGS: Heart and mediastinum are normal. Lungs are clear. Diaphragm is normal. Bony thorax appears normal. IMPRESSION: Normal chest. No change.
[2019-05-23 17:55] VITALS: BP 126/81; PULSE 108; RESP 18
== END 2019-05-23 18:10 | disposition home or self-care (01) ==
LOC: EC 16:27
DX: J40 Bronchitis, not specified as acute or chronic (principal); F32.9 Major depressive disorder, single episode, unspecified; F41.9 Anxiety disorder, unspecified; Z79.899 Other long term (current) drug therapy; Z87.891 Personal history of nicotine dependence; Z95.5 Presence of coronary angioplasty implant and graft
CPT/HCPCS: 94640; 87502; 71046; 99285; 96372; J1100

== ENCOUNTER 2020-03-10 12:56 | Emergency (ER) | payer OTHER ==
[2020-03-10 13:11] VITALS: RESP 18
[2020-03-10 13:34] LABS: Basophils % (A) 0 %; Eosinophils % (A) 0 %; HCT 39.2 % (34.0-46.0); HGB 13.3 gm/dL (11.4-16.0); Lymphocytes # (A) 1.7 k/uL (1.0-4.8); Lymphocytes % (A) 21 %; MCH 27.9 pg (25.0-35.0); MCV 82.2 fL (80.0-100.0); Mean Platelet Volume 7.1; Monocytes # (A) 0.4 k/uL (0-1.0); Monocytes % (A) 4 %; Neutrophils # (A) 6.1 k/uL (1.3-7.7); Neutrophils % (A) 74 %; Platelet Count 258 k/uL (150-450); RBC 4.77 m/uL (3.80-5.40); RDW 13.6 % (11.5-15.5); WBC 8.3 k/uL (3.8-10.6)
[2020-03-10 13:42] LABS: Amorphous Sediment,Urine Rare /hpf; Appearance,Urine Clear (Clear); Bacteria,Urine Occasional /hpf; Bilirubin,Urine Negative (Negative); Blood,Urine Negative (Negative); Color,Urine Yellow; Glucose,Urine (UA) Negative (Negative); Hyaline Casts,Urine 1 /lpf (0-2); Ketones,Urine Negative (Negative); Leukocyte Esterase,Urine Moderate (Negative); Mucus,Urine Rare /hpf; Nitrite,Urine Positive (Negative); Protein,Urine Negative (Negative); RBC,Urine 1 /hpf (0-5); Specific Gravity,Urine 1.021 (1.001-1.035); Squamous Epithelial Cell,Urine 10 /hpf (0-4); Urobilinogen,Urine <2.0 mg/dL (<2.0); WBC,Urine 10 /hpf (0-5)
[2020-03-10 13:43] LABS: HCG,Qualitative Serum Not Detected
[2020-03-10] MEDS ORDERED: cefTRIAXone IN SWFI 1,000 MG/10 ML SYRINGE IVP STA (13:45)
[2020-03-10 13:49] LABS: ALT 55 U/L (4-34); AST 48 U/L (14-36); African American GFR (CKD) >90 (>60 ml/min/1.73 sqM); Albumin 4.1 g/dL (3.5-5.0); Alkaline Phosphatase 75 U/L (38-126); Anion Gap 6 mmol/L; Blood Urea Nitrogen 11 mg/dL (7-17); Carbon Dioxide 27 mmol/L (22-30); Chloride 105 mmol/L (98-107); Glucose 94 mg/dL (74-99); Non-African American GFR(CKD) >90 (>60 ml/min/1.73 sqM); Sodium 138 mmol/L (137-145); Total Bilirubin 0.4 mg/dL (0.2-1.3); Total Protein 7.1 g/dL (6.3-8.2)
--- NOTE | 2020-03-10 14:18 | CT ---
EXAMINATION TYPE: CT abdomen pelvis wo con DATE OF EXAM: 03/10/2020 COMPARISON: November 23, 2004 HISTORY: Right flankpain for > 2 months and and right lower quadrant pain for [address] DLP: 1736.2 mGycm Automated exposure control for dose reduction was used. Images were obtained from the diaphragm to the floor the pelvis with no contrast. Lung bases are clear. There is no pleural effusion. Heart appears normal. There is diffuse fatty infiltration of the liver. Bile ducts are not dilated. Spleen is intact. There is no pancreatic mass. Stomach is intact. Gallbladder appears normal. There is no adrenal mass. Kidneys show normal size and contour. There is no hydronephrosis. There is 3 mm calculus interpolar anterior right kidney. There is 2 mm calculus lower pole right kidney. There is no retroperitoneal adenopathy. Bladder distends smoothly. There is no inguinal hernia. Uterus is retroverted. There is IUD in the ut erine fundus. There is no evidence of a pelvic mass. There is no free fluid in the pelvis. Appendix i s posterior and appears normal. There is no mesenteric edema. There is no ascites or free air. There is no bowel obstruction. Lumbar vertebra have normal alignment. There is no compression fracture. Bony pelvis is intact. IMPRESSION: Nonobstructing right renal calculi. Normal appendix. Fatty infiltration of the liver. Hepatomegaly.
--- NOTE | 2020-03-10 14:29 | ED ---
Abdominal Pain HPI - General Chief Complaint: Abdominal Pain Stated Complaint: poss , abd/back pain, nausea Time Seen by Provider: 03/10/20 13:11 Source: patient Mode of arrival: ambulatory Limitations: no limitations - History of Present Illness Initial Comments: 29-year-old feel presenting today for chief complaint of lower abdominal discomfort, bilateral low back pain. Patient states she has a ParaGard had not has not had a period in 8 years. Patient states that she has had chronic nausea for approximately 6 months. Patient denies any chronic pain. Patient states that she is concerned she is possibly as her friend has gotten ParaGard before. Patient states that the past 2 days she has had lower pelvic pressure she states is mostly midline at times is right-sided with more right- sided low back pain the left. Patient denies a known history of kidney stones denies dysuria urgency frequency hematuria. Denies diarrhea or vomiting. Patient denies any upper bowel pain chest pain shortness of breath. Patient de nies any vaginal bleeding vaginal discharge concern for sexually transmitted diseases. Patient has noticeable plates upon arrival she appears well and nontoxic acute distress - Related Data Home Medications Medication Instructions Recorded Confirmed Sertraline HCl [Zoloft] 100 mg PO DAILY 12/28/17 08/22/18 tiZANidine HCL [Zanaflex] 4 mg PO HS PRN 12/28/17 08/22/18 traZODone HCL 100 mg PO HS 12/28/17 08/22/18 ALPRAZolam [Xanax] 0.25 mg PO DAILY PRN 08/22/18 08/22/18 Previous Rx's Medication Instructions Recorded Cephalexin [Keflex] 500 mg PO Q6HR #20 cap 08/22/18 Albuterol Inhaler (Mhu) [Ventolin 1 - 2 puff INHALATION Q4HR PRN #1 05/23/19 Hfa Inhaler (Mhu)] inhaler methylPREDNISolone Dose Pack 4 mg PO DIRECTED #21 package 05/23/19 [Medrol Dose Pack] Cephalexin [Keflex] 500 mg PO Q6HR 7 Days #28 cap 03/10/20 Allergies Allergy/AdvReac Type Severity Reaction Status Date / Time No Known Allergies Allergy Verified 03/10/20 13:07 Review of Systems ROS Statement: Those systems with pertinent positive or pertinent negative responses have been documented in the HPI. ROS Other: All systems not noted in ROS Statement are negative. Past Medical History Past Medical History: Supraventricular Tachycardia (SVT) Additional Past Medical History / Comment(s): fx left ankle- slipped on ice 02/27/16-has splint and using crutches History of Any Multi-Drug Resistant Organisms: None Reported Past Surgical History: Adenoidectomy, Ear Surgery, Heart Catheterization, Orthopedic Surgery, Tonsillectomy Past Anesthesia/Blood Transfusion Reactions: No Reported Reaction Past Psychological History: Anxiety, Depression Past Alcohol Use History: Occasional Past Drug Use History: Marijuana - Past Family History Mother Family Medical History: Cancer General Exam - General Exam Comments Initial Comments: General: The patient is awake and alert, in no distress Eye: Pupils are equal, round and reactive to light, extra-ocular movements are intact. No nystagmus. There is normal conjunctiva bilaterally. No signs of icterus. Ears, nose, mouth and throat: There are moist mucous membranes and no oral lesions. Neck: The neck is supple, there is no tenderness or JVD. Cardiovascular: There is a regular rate and rhythm. No murmur, rub or gallop is appreciated. Respiratory: Lungs are clear to auscultation, respirations are non-labored, breath sounds are equal. No wheezes, stridor, rales, or rhonchi. Gastrointestinal: Soft, non-distended, superpubic tenderness to patient of the abdomen some mild right lower quadrant tenderness. Be lower pelvic no McBurney's point tenderness, abdomen without masses or organomegaly noted. There is no rebound or guarding present. Musculoskeletal: Normal ROM, no tenderness. Strength 5/5. Sensation intact. Radial pulses equal bilaterally 2+. Neurological: A&O x 3. CN II-XII intact grossly, There are no obvious motor or sensory deficits. Coordination appears grossly intact. Speech is normal. Skin: Skin is warm and dry and no rashes or lesions are noted. Psychiatric: Cooperative, appropriate mood & affect, normal judgment. Limitations: no limitations Course Vital Signs 03/10/20 03/10/20 13:07 15:22 Temperature 98.7 F 99.2 F Pulse Rate 98 89 Respiratory 18 18 Rate Blood Pressure 128/76 124/78 O2 Sat by Pulse 99 Oximetry Medical Decision Making - Medical Decision Making labs stable. HCG serum/urine (-)/ CT no kidney stones. UA c oncerning for infection. + nitrates. pt denies vaginal discharge/pain/bleeding. pt givne rocephin in the Er. will be discharged wtih keflex and pcp f/u. agreeable to car eplan and dischage. si to return for fevers. - Lab Data Result diagrams: 03/10/20 13:26 03/10/20 13:26 Lab Results 03/10/20 03/10/20 03/10/20 Range/Units 13:19 13:19 13:26 WBC 8.3 (3.8-10.6) k/uL RBC 4.77 (3.80-5.40) m/uL Hgb 13.3 (11.4-16.0) gm/dL Hct 39.2 (34.0-46.0) % MCV 82.2 (80.0-100.0) fL MCH 27.9 (25.0-35.0) pg MCHC 34.0 (31.0-37.0) g/dL RDW 13.6 (11.5-15.5) % Plt Count 258 (150-450) k/uL MPV 7.1 Neutrophils % 74 % Lymphocytes % 21 % Monocytes % 4 % Eosinophils % 0 % Basophils % 0 % Neutrophils # 6.1 (1.3-7.7) k/uL Lymphocytes # 1.7 (1.0-4.8) k/uL Monocytes # 0.4 (0-1.0) k/uL Eosinophils # 0.0 (0-0.7) k/uL Basophils # 0.0 (0-0.2) k/uL Sodium (137-145) mmol/L Potassium (3.5-5.1) mmol/L Chloride (98-107) mmol/L Carbon Dioxide (22-30) mmol/L Anion Gap mmol/L BUN (7-17) mg/dL Creatinine (0.52-1.04) mg/dL Est GFR (CKD-EPI)AfAm (>60 ml/min/1.73 sqM) Est GFR (CKD-EPI)NonAf (>60 ml/min/1.73 sqM) Glucose (74-99) mg/dL Calcium (8.4-10.2) mg/dL Total Bilirubin (0.2-1.3) mg/dL AST (14-36) U/L ALT (4-34) U/L Alkaline Phosphatase (38-126) U/L Total Protein (6.3-8.2) g/dL Albumin (3.5-5.0) g/dL HCG, Qual Urine Color Yellow Urine Appearance Clear (Clear) Urine pH 6.0 (5.0-8.0) Ur Specific [place] 1.021 (1.001-1.035) Urine Protein Negative (Negative) Urine Glucose (UA) Negative (Negative) Urine Ketones Negative (Negative) Urine Blood Negative (Negative) Urine Nitrite Positive H (Negative) Urine Bilirubin Negative (Negative) Urine Urobilinogen <2.0 (<2.0) mg/dL Ur Leukocyte Esterase Moderate H (Negative) Urine RBC 1 (0-5) /hpf Urine WBC 10 H (0-5) /hpf Ur Squamous Epith Cells 10 H (0-4) /hpf Amorphous Sediment Rare H (None) /hpf Urine Bacteria Occasional H (None) /hpf Hyaline Casts 1 (0-2) /lpf Urine Mucus Rare H (None) /hpf Urine HCG, Qual Not Detected (Not Detectd) 03/10/20 Range/Units 13:26 WBC (3.8-10.6) k/uL RBC (3.80-5.40) m/uL Hgb (11.4-16.0) gm/dL Hct (34.0-46.0) % MCV (80.0-100.0) fL MCH (25.0-35.0) pg MCHC (31.0-37.0) g/dL RDW (11.5-15.5) % Plt Count (150-450) k/uL MPV Neutrophils % % Lymphocytes % % Monocytes % % Eosinophils % % Basophils % % Neutrophils # (1.3-7.7) k/uL Lymphocytes # (1.0-4.8) k/uL Monocytes # (0-1.0) k/uL Eosinophils # (0-0.7) k/uL Basophils # (0-0.2) k/uL Sodium 138 (137-145) mmol/L Potassium 4.0 (3.5-5.1) mmol/L Chloride 105 (98-107) mmol/L Carbon Dioxide 27 (22-30) mmol/L Anion Gap 6 mmol/L BUN 11 (7-17) mg/dL Creatinine 0.57 (0.52-1.04) mg/dL Est GFR (CKD-EPI)AfAm >90 (>60 ml/min/1.73 sqM) Est GFR (CKD-EPI)NonAf >90 (>60 ml/min/1.73 sqM) Glucose 94 (74-99) mg/dL Calcium 9.0 (8.4-10.2) mg/dL Total Bilirubin 0.4 (0.2-1.3) mg/dL AST 48 H (14-36) U/L ALT 55 H (4-34) U/L Alkaline Phosphatase 75 (38-126) U/L Total Protein 7.1 (6.3-8.2) g/dL Albumin 4.1 (3.5-5.0) g/dL HCG, Qual Not Detected Urine Color Urine Appearance (Clear) Urine pH (5.0-8.0) Ur Specific [place] (1.001-1.035) Urine Protein (Negative) Urine Glucose (UA) (Negative) Urine Ketones (Negative) Urine Blood (Negative) Urine Nitrite (Negative) Urine Bilirubin (Negative) Urine Urobilinogen (<2.0) mg/dL Ur Leukocyte Esterase (Negative) Urine RBC (0-5) /hpf Urine WBC (0-5) /hpf Ur Squamous Epith Cells (0-4) /hpf Amorphous Sediment (None) /hpf Urine Bacteria (None) /hpf Hyaline Casts (0-2) /lpf Urine Mucus (None) /hpf Urine HCG, Qual (Not Detectd) Disposition Clinical Impression: UTI (urinary tract infection), Nausea, Nephrolithiasis Disposition: HOME SELF-CARE Condition: Good Instructions (If sedation given, give patient instructions): Urinary Tract Infection in Women (ED) Additional Instructions: Please use medication as discussed. Please follow-up with family doctor in the next 2 days. Please return to emergency room if the symptoms increase or worsen or for any other concerns. Prescriptions: Cephalexin [Keflex] 500 mg PO Q6HR 7 Days #28 cap Is patient prescribed a controlled substance at d/c from ED?: No Referrals: Gallo Moreno MD [Primary Care Provider] - 1-2 days Time of Disposition: 14:29
[2020-03-10 15:23] VITALS: BP 124/78; PULSE 89; TEMP 99.2
== END 2020-03-10 15:23 | disposition home or self-care (01) ==
LOC: EC 12:56
DX: N20.0 Calculus of kidney (principal); N39.0 Urinary tract infection, site not specified; F41.9 Anxiety disorder, unspecified; F32.9 Major depressive disorder, single episode, unspecified; Z79.899 Other long term (current) drug therapy; Z95.5 Presence of coronary angioplasty implant and graft; Z90.49 Acquired absence of other specified parts of digestive tract
CPT/HCPCS: 36415; 80053; 85025; 81001; 81025; 84703; 74176; 99284; 96374; J0696

== ENCOUNTER 2020-04-14 13:14 | Emergency (ER) | payer OTHER ==
[2020-04-14 13:28] VITALS: BP 121/81; PULSE 92; RESP 18; TEMP 98.6
--- NOTE | 2020-04-14 13:54 | XR ---
EXAMINATION TYPE: XR ankle complete LT, XR foot complete LT DATE OF EXAM: 04/14/2020 COMPARISON: No significant HISTORY: Pain TECHNIQUE: 3 views of the left and ankle are submitted for evaluation. FINDINGS: There is no evidence for acute fracture or dislocation. Plate fixation distal fibula with t he screw traversing the fibula and tibia. The screw is fractured at its tibial component. Ankle morti se is intact. Soft tissues are within normal limits. IMPRESSION: 1. No evidence for acute fracture.
--- NOTE | 2020-04-14 13:55 | XR ---
EXAMINATION TYPE: XR tibia fibula LT DATE OF EXAM: 04/14/2020 CLINICAL HISTORY: pain TECHNIQUE: AP and lateral images of the left tibia and fibula are obtained. COMPARISON: None. FINDINGS: There is no acute fracture/dislocation evident. The joint spaces appear within normal ahmadi its. The overlying soft tissue appears unremarkable. IMPRESSION: There is no acute fracture or dislocation seen. ICD 10 NO FRACTURE, INITIAL EVALUATION
--- NOTE | 2020-04-14 14:03 | ED ---
Lower Extremity Injury HPI - General Chief Complaint: Extremity Injury, Lower Stated Complaint: Fall, L ankle Pain Time Seen by Provider: 04/14/20 13:29 Source: patient Mode of arrival: ambulatory Limitations: no limitations - History of Present Illness Initial Comments: Patient is a 29-year-old female presenting to the emergency Department with complaints of left ankle pain after she slipped and fell this morning. Patient states she slipped and fell off a step and twisted her left ankle. She is complaining of left lower leg, left ankle and some mild left foot pain as well. She does have previous surgery of her left ankle including plate and screws, this was done in 2017. Patient denies hitting her head, she has no other injuries from this fall today. She has no further complaints. - Related Data Home Medications Medication Instructions Recorded Confirmed Sertraline HCl [Zoloft] 100 mg PO DAILY 12/28/17 08/22/18 tiZANidine HCL [Zanaflex] 4 mg PO HS PRN 12/28/17 08/22/18 traZODone HCL 100 mg PO HS 12/28/17 08/22/18 ALPRAZolam [Xanax] 0.25 mg PO DAILY PRN 08/22/18 08/22/18 Previous Rx's Medication Instructions Recorded Cephalexin [Keflex] 500 mg PO Q6HR #20 cap 08/22/18 Albuterol Inhaler (Mhu) [Ventolin 1 - 2 puff INHALATION Q4HR PRN #1 05/23/19 Hfa Inhaler (Mhu)] inhaler methylPREDNISolone Dose Pack 4 mg PO DIRECTED #21 package 05/23/19 [Medrol Dose Pack] Cephalexin [Keflex] 500 mg PO Q6HR 7 Days #28 cap 03/10/20 Allergies Allergy/AdvReac Type Severity Reaction Status Date / Time No Known Allergies Allergy Verified 04/14/20 13:28 Review of Systems ROS Statement: Those systems with pertinent positive or pertinent negative responses have been documented in the HPI. ROS Other: All systems not noted in ROS Statement are negative. Past Medical History Past Medical History: Supraventricular Tachycardia (SVT) Additional Past Medical History / Comment(s): fx left ankle- slipped on ice 02/27/16-has splint and using crutches History of Any Multi-Drug Resistant Organisms: None Reported Past Surgical History: Adenoidectomy, Ear Surgery, Heart Catheterization, Orthopedic Surgery, Tonsillectomy Past Anesthesia/Blood Transfusion Reactions: No Reported Reaction Past Psychological History: Anxiety, Depression Smoking Status: Current some day smoker Past Alcohol Use History: Occasional Past Drug Use History: Marijuana - Past Family History Mother Family Medical History: Cancer General Exam - General Exam Comments Initial Comments: GENERAL: Patient is well-developed and well-nourished. Patient is nontoxic and in no acute distress. HEAD: Atraumatic, normocephalic. EYES: Pupils equal round and reactive to light, extraocular movements intact, sclera anicteric, conjunctiva are normal. Eyelids were unremarkable. ENT: TMs normal, nares patent, oropharynx clear without exudates. Moist mucous membranes. NECK: Normal range of motion, supple without lymphadenopathy or JVD. LUNGS: Unlabored respirations. Breath sounds clear to auscultation bilaterally and equal. No wheezes rales or rhonchi. HEART: Regular rate and rhythm without murmurs, rubs or gallops. ABDOMEN: Soft, nontender, normoactive bowel sounds. No guarding, no rebound. No masses appreciated. : Deferred MUSCULOSKELETAL: Patient has some mild pain along the left lateral malleolus, dorsal aspect of the left foot as well as some mild pain radiating up the left lower leg. There is no obvious deformity, mild swelling present. She is neurovascular intact. There is a scar from her past ankle surgery. No clubbing or cyanosis. NEUROLOGICAL: Patient is alert and oriented x 3. Motor and sensory are also intact. Cranial nerves II through XII grossly intact. Symmetrical smile. Normal speech, normal gait. PSYCH: Normal mood, normal affect. SKIN: Warm, Dry, normal turgor, no rashes or lesions noted. Limitations: no limitations Course Vital Signs 04/14/20 13:23 Temperature 98.6 F Pulse Rate 92 Respiratory 18 Rate Blood Pressure 121/81 O2 Sat by Pulse 100 Oximetry Medical Decision Making - Medical Decision Making Patient is a 29-year-old female here for left ankle pain after she slipped and fell on some stairs this morning. She has had a previous fracture including plate and screws in her left ankle in 2017. X-rays today of the left tib-fib, left ankle, left foot revealed no acute fractures dislocations. I discussed with patient this is most likely an ankle sprain, contusion. Recommended ice, elevation, ibuprofen for discomfort. She can follow-up with her surgeon if symptoms persist. Patient is stable for discharge. Patient is in agreement with this plan of care. Return parameters were discussed with the patient and they verbalized understanding. Case discussed with Dr. Escamilla. Disposition Clinical Impression: Left ankle sprain Disposition: HOME SELF-CARE Condition: Stable Instructions (If sedation given, give patient instructions): Ankle Sprain (ED) Additional Instructions: Please return to the Emergency Department if symptoms worsen or any other co ncerns. Recommend ice, elevation, brace for support. I f symptoms persist, follow-up with your surgeon as discussed. Is patient prescribed a controlled substance at d/c from ED?: No Referrals: Gallo Moreno MD [Primary Care Provider] - 1-2 days
== END 2020-04-14 14:15 | disposition home or self-care (01) ==
LOC: EC 13:14
DX: S93.402A Sprain of unspecified ligament of left ankle, initial encounter (principal); F41.9 Anxiety disorder, unspecified; F32.9 Major depressive disorder, single episode, unspecified; F17.200 Nicotine dependence, unspecified, uncomplicated; Z79.899 Other long term (current) drug therapy; W10.9XXA Fall (on) (from) unspecified stairs and steps, initial encounter
CPT/HCPCS: 99283

== ENCOUNTER 2021-01-03 16:27 | Emergency (ER) | payer OTHER ==
[2021-01-03] MEDS ORDERED: ONDANSETRON 4 MG/2 ML VIAL IVP STA (19:18)
[2021-01-03] MEDS ORDERED: MORPHINE SULFATE 2 MG/ML SYRINGE IVP STA (19:18)
[2021-01-03 19:41] LABS: Basophils % (A) 0 %; Eosinophils # (A) 0.1 k/uL (0-0.7); Eosinophils % (A) 1 %; HCT 39.4 % (34.0-46.0); HGB 13.4 gm/dL (11.4-16.0); Lymphocytes # (A) 2.2 k/uL (1.0-4.8); Lymphocytes % (A) 22 %; MCH 29.1 pg (25.0-35.0); MCHC 34.1 g/dL (31.0-37.0); MCV 85.4 fL (80.0-100.0); Mean Platelet Volume 7.7; Monocytes # (A) 0.3 k/uL (0-1.0); Monocytes % (A) 3 %; Neutrophils # (A) 7.2 k/uL (1.3-7.7); Neutrophils % (A) 72 %; Platelet Count 263 k/uL (150-450); RBC 4.62 m/uL (3.80-5.40); RDW 13.3 % (11.5-15.5); WBC 9.9 k/uL (3.8-10.6)
[2021-01-03 19:45] LABS: Appearance,Urine Cloudy (Clear); Bilirubin,Urine Negative (Negative); Blood,Urine Negative (Negative); Color,Urine Yellow; Glucose,Urine (UA) Negative (Negative); Ketones,Urine Negative (Negative); Leukocyte Esterase,Urine Large (Negative); Mucus,Urine Moderate /hpf; Nitrite,Urine Negative (Negative); PH, Urine 5.5 (5.0-8.0); Protein,Urine Trace (Negative); RBC,Urine 5 /hpf (0-5); Squamous Epithelial Cell,Urine 16 /hpf (0-4); Urobilinogen,Urine <2.0 mg/dL (<2.0); WBC,Urine 29 /hpf (0-5)
[2021-01-03 19:51] LABS: ALT 64 U/L (4-34); AST 44 U/L (14-36); African American GFR (CKD) >90 (>60 ml/min/1.73 sqM); Alkaline Phosphatase 82 U/L (38-126); Anion Gap 9 mmol/L; Blood Urea Nitrogen 8 mg/dL (7-17); Calcium 8.8 mg/dL (8.4-10.2); Carbon Dioxide 25 mmol/L (22-30); Chloride 103 mmol/L (98-107); Glucose 93 mg/dL (74-99); Lipase 131 U/L (23-300); Non-African American GFR(CKD) >90 (>60 ml/min/1.73 sqM); Sodium 137 mmol/L (137-145); Total Bilirubin 0.5 mg/dL (0.2-1.3)
--- NOTE | 2021-01-03 20:21 | US ---
EXAMINATION TYPE: US transvaginal DATE OF EXAM: 01/03/2021 COMPARISON: CLINICAL HISTORY: sudden lower pelvic pain. Midline pelvic pain per patient. IUD x 9 years. TECHNIQUE: Transvaginal (TV). Date of LMP: Unknown due to IUD, EXAM MEASUREMENTS: Uterus: 6.0 x 3.9 x 3.2 cm Endometrial Stripe: 0.5 cm Left Ovary: 1.5 x 0.9 x 1.1 cm 1. Uterus: Retroverted wnl 2. Endometrium: IUD visualized 3. Right Ovary: Obscured by overlying bowel gas 4. Left Ovary: wnl Spectral, color and waveform doppler imaging shows good arterial and venous flow within the left ov darby; there is no evidence for ovarian torsion. 5. Bilateral Adnexa: wnl 6. Posterior cul-de-sac: small amount of free fluid IMPRESSION: There is IUD in good position. No endometrial thickening. No evidence of ovarian torsion. No adnexal mass.
[2021-01-03] MEDS ORDERED: MORPHINE SULFATE 2 MG/ML SYRINGE IVP ONE (20:31)
[2021-01-03 21:11] VITALS: RESP 18
--- NOTE | 2021-01-03 21:20 | CT ---
EXAMINATION TYPE: CT abdomen pelvis w con DATE OF EXAM: 01/03/2021 COMPARISON: Single view HISTORY: c/o low abdominal pain CT DLP: 3109.4 mGycm Automated exposure control for dose reduction was used. CONTRAST: Performed with IV Contrast, patient injected with 100 mL of Isovue 300. Images obtained from the diaphragm to the floor the pelvis with IV contrast. Lung bases are clear. There is no pleural effusion. There is diffuse fatty infiltration of the liver. Spleen stomach pancreas gallbladder appear intact. The bile ducts are not dilated. Liver is enlarged and measures 23 cm. There is no adrenal mass. Kidneys show satisfactory contrast opacification. There are small 1 to 2 mm calculi in the right kidn ey. There is no hydronephrosis. There is no retroperitoneal adenopathy. Bladder distends smoothly. Th ere is no inguinal hernia. There is no free fluid in the pelvis. Uterus is retroverted. There is IUD in the uterine fundus. There is no evidence of a pelvic mass. Appendix is posterior and appears jose l. There is no mesenteric edema. There is no ascites or free air. There is no bowel obstruction. The lum bar vertebra have normal spacing and alignment. There is no compression fracture. Bony pelvis is inta ct. The hip joints are intact. IMPRESSION: Fatty infiltration of the liver. Normal appendix. No acute abnormality of the abdomen pelvis. Nonobst ructing tiny right renal calculi.
[2021-01-03] MEDS ORDERED: ONDANSETRON 4 MG ODT STARTER PACK 2 TAB BTL PO STA (21:36)
--- NOTE | 2021-01-03 21:36 | ED ---
Abdominal Pain HPI - General Chief Complaint: Abdominal Pain Stated Complaint: lower abd pain Time Seen by Provider: 01/03/21 18:54 Source: patient, RN notes reviewed Mode of arrival: ambulatory Limitations: no limitations - History of Present Illness Initial Comments: Patient is a 30-year-old female presenting to the emergency Department with complaints of lower abdominal pain started about 3 AM this morning. She states it did seem to wake her up from her sleep. It has been consistent throughout the day so she came in for evaluation. She describes it as suprapubic, pelvic discomfort, does go across the right and left sides right lower abdomen. She does admit to some mild nausea but no vomiting, no diarrhea. She denies any vaginal discharge or any concerns for STIs. She denies any dysuria or hematuria, no lower back pain, no fevers or chills. She denies any cough or congestion. She's been having regular bowel movements. She denies being secondary to IUD. She denies any abdominal surgeries. She has no further complaints. - Related Data Home Medications Medication Instructions Recorded Confirmed Sertraline HCl [Zoloft] 100 mg PO DAILY 12/28/17 08/22/18 tiZANidine HCL [Zanaflex] 4 mg PO HS PRN 12/28/17 08/22/18 traZODone HCL 100 mg PO HS 12/28/17 08/22/18 ALPRAZolam [Xanax] 0.25 mg PO DAILY PRN 08/22/18 08/22/18 Previous Rx's Medication Instructions Recorded Cephalexin [Keflex] 500 mg PO Q6HR #20 cap 08/22/18 Albuterol Inhaler (Mhu) [Ventolin 1 - 2 puff INHALATION Q4HR PRN #1 05/23/19 Hfa Inhaler (Mhu)] inhaler methylPREDNISolone Dose Pack 4 mg PO DIRECTED #21 package 05/23/19 [Medrol Dose Pack] Cephalexin [Keflex] 500 mg PO Q6HR 7 Days #28 cap 03/10/20 Cephalexin [Keflex] 500 mg PO BID 5 Days #10 cap 01/03/21 Allergies Allergy/AdvReac Type Severity Reaction Status Date / Time No Known Allergies Allergy Verified 01/03/21 17:26 Review of Systems ROS Statement: Those systems with pertinent positive or pertinent negative responses have been documented in the HPI. ROS Other: All systems not noted in ROS Statement are negative. Past Medical History Past Medical History: Supraventricular Tachycardia (SVT) Additional Past Medical History / Comment(s): fx left ankle- slipped on ice 02/27/16-has splint and using crutches History of Any Multi-Drug Resistant Organisms: None Reported Past Surgical History: Adenoidectomy, Ear Surgery, Heart Catheterization, Orthopedic Surgery, Tonsillectomy Past Anesthesia/Blood Transfusion Reactions: No Reported Reaction Past Psychological History: Anxiety, Depression Smoking Status: Current some day smoker Past Alcohol Use History: Occasional Past Drug Use History: Marijuana - Past Family History Mother Family Medical History: Cancer General Exam - General Exam Comments Initial Comments: GENERAL: Patient is well-developed and well-nourished. Patient is nontoxic and in no acute distress. HEAD: Atraumatic, normocephalic. EYES: Pupils equal round and reactive to light, extraocular movements intact, sclera anicteric, conjunctiva are normal. Eyelids were unremarkable. ENT: Nares patent, oropharynx clear without exudates. Moist mucous membranes. NECK: Normal range of motion, supple without lymphadenopathy or JVD. LUNGS: Unlabored respirations. Breath sounds clear to auscultation bilaterally and equal. No wheezes rales or rhonchi. HEART: Regular rate and rhythm without murmurs, rubs or gallops. ABDOMEN: Soft, tender to palpation of the suprapubic, bilateral lower abdomen region. normoactive bowel sounds. No guarding, no rebound. No masses appreciated. : Deferred MUSCULOSKELETAL: Normal extremities with adequate strength and normal range of motion, no pitting or edema. No clubbing or cyanosis. NEUROLOGICAL: Patient is alert and oriented x 3. SKIN: Warm, Dry, normal turgor, no rashes or lesions noted. Limitations: no limitations Course Vital Signs 01/03/21 01/03/21 01/03/21 17:23 21:09 21:45 Temperature 100.3 F H 98.3 F Pulse Rate 102 H 97 90 Respiratory 20 18 18 Rate Blood Pressure 148/97 125/59 117/76 O2 Sat by Pulse 96 96 98 Oximetry Medical Decision Making - Medical Decision Making Patient is a 30-year-old female here for lower abdominal discomfort that started last night. She does have some mild nausea, no vomiting. She did arrive febrile to 100.3 although temperature was rechecked shortly after it was normal at 98.6. I do not believe she is febrile. Labs reveal normal white count, mild elevation of her liver enzymes. Urine does show large amount leukocyte Estrace, 29 wbc's, HCG is not detected. Ultrasound reveals no evidence for ovarian torsion, no acute process. Patient continued to have pain, did do a CT of the abdomen looking for appendicitis, appendix appears normal, no acute proce ss and abdomen. Patient does feel improvement after fluids and pain medicine. I discussed with her treated for UTI. Recommended Tylenol and Motrin at home for any discomfort. Return parameters were discussed with her and she verbalized understanding. Case discussed with Dr. asencio. - Lab Data Result diagrams: 01/03/21 19:35 01/03/21 19:35 Lab Results 01/03/21 01/03/21 01/03/21 Range/Units 19:35 19:35 19:35 WBC 9.9 (3.8-10.6) k/uL RBC 4.62 (3.80-5.40) m/uL Hgb 13.4 (11.4-16.0) gm/dL Hct 39.4 (34.0-46.0) % MCV 85.4 (80.0-100.0) fL MCH 29.1 (25.0-35.0) pg MCHC 34.1 (31.0-37.0) g/dL RDW 13.3 (11.5-15.5) % Plt Count 263 (150-450) k/uL MPV 7.7 Neutrophils % 72 % Lymphocytes % 22 % Monocytes % 3 % Eosinophils % 1 % Basophils % 0 % Neutrophils # 7.2 (1.3-7.7) k/uL Lymphocytes # 2.2 (1.0-4.8) k/uL Monocytes # 0.3 (0-1.0) k/uL Eosinophils # 0.1 (0-0.7) k/uL Basophils # 0.0 (0-0.2) k/uL Sodium (137-145) mmol/L Potassium (3.5-5.1) mmol/L Chloride (98-107) mmol/L Carbon Dioxide (22-30) mmol/L Anion Gap mmol/L BUN (7-17) mg/dL Creatinine (0.52-1.04) mg/dL Est GFR (CKD-EPI)AfAm (>60 ml/min/1.73 sqM) Est GFR (CKD-EPI)NonAf (>60 ml/min/1.73 sqM) Glucose (74-99) mg/dL Plasma Lactic Acid Gavin (0.7-2.0) mmol/L Calcium (8.4-10.2) mg/dL Total Bilirubin (0.2-1.3) mg/dL AST (14-36) U/L ALT (4-34) U/L Alkaline Phosphatase (38-126) U/L Total Protein (6.3-8.2) g/dL Albumin (3.5-5.0) g/dL Lipase (23-300) U/L Urine Color Yellow Urine Appearance Cloudy H (Clear) Urine pH 5.5 (5.0-8.0) Ur Specific [place] 1.030 (1.001-1.035) Urine Protein Trace H (Negative) Urine Glucose (UA) Negative (Negative) Urine Ketones Negative (Negative) Urine Blood Negative (Negative) Urine Nitrite Negative (Negative) Urine Bilirubin Negative (Negative) Urine Urobilinogen <2.0 (<2.0) mg/dL Ur Leukocyte Esterase Large H (Negative) Urine RBC 5 (0-5) /hpf Urine WBC 29 H (0-5) /hpf Ur Squamous Epith Cells 16 H (0-4) /hpf Urine Mucus Moderate H (None) /hpf Urine HCG, Qual Not Detected (Not Detectd) 01/03/21 01/03/21 Range/Units 19:35 19:35 WBC (3.8-10.6) k/uL RBC (3.80-5.40) m/uL Hgb (11.4-16.0) gm/dL Hct (34.0-46.0) % MCV (80.0-100.0) fL MCH (25.0-35.0) pg MCHC (31.0-37.0) g/dL RDW (11.5-15.5) % Plt Count (150-450) k/uL MPV Neutrophils % % Lymphocytes % % Monocytes % % Eosinophils % % Basophils % % Neutrophils # (1.3-7.7) k/uL Lymphocytes # (1.0-4.8) k/uL Monocytes # (0-1.0) k/uL Eosinophils # (0-0.7) k/uL Basophils # (0-0.2) k/uL Sodium 137 (137-145) mmol/L Potassium 4.0 (3.5-5.1) mmol/L Chloride 103 (98-107) mmol/L Carbon Dioxide 25 (22-30) mmol/L Anion Gap 9 mmol/L BUN 8 (7-17) mg/dL Creatinine 0.63 (0.52-1.04) mg/dL Est GFR (CKD-EPI)AfAm >90 (>60 ml/min/1.73 sqM) Est GFR (CKD-EPI)NonAf >90 (>60 ml/min/1.73 sqM) Glucose 93 (74-99) mg/dL Plasma Lactic Acid Gavin 0.9 (0.7-2.0) mmol/L Calcium 8.8 (8.4-10.2) mg/dL Total Bilirubin 0.5 (0.2-1.3) mg/dL AST 44 H (14-36) U/L ALT 64 H (4-34) U/L Alkaline Phosphatase 82 (38-126) U/L Total Protein 7.0 (6.3-8.2) g/dL Albumin 4.0 (3.5-5.0) g/dL Lipase 131 (23-300) U/L Urine Color Urine Appearance (Clear) Urine pH (5.0-8.0) Ur Specific [place] (1.001-1.035) Urine Protein (Negative) Urine Glucose (UA) (Negative) Urine Ketones (Negative) Urine Blood (Negative) Urine Nitrite (Negative) Urine Bilirubin (Negative) Urine Urobilinogen (<2.0) mg/dL Ur Leukocyte Esterase (Negative) Urine RBC (0-5) /hpf Urine WBC (0-5) /hpf Ur Squamous Epith Cells (0-4) /hpf Urine Mucus (None) /hpf Urine HCG, Qual (Not Detectd) Disposition Clinical Impression: Abdominal pain, UTI (urinary tract infection) Disposition: HOME SELF-CARE Condition: Stable Instructions (If sedation given, give patient instructions): Urinary Tract In fection in Women (ED) Additional Instructions: Please return to the Emergency Department if symptoms worsen or any other concerns. Take antibiotics as prescribed, finish entire course. May take Zofran for any nausea. Follow-up with your family doctor. Prescriptions: Cephalexin [Keflex] 500 mg PO BID 5 Days #10 cap Is patient prescribed a controlled substance at d/c from ED?: No Referrals: Gallo Moreno MD [Primary Care Provider] - 1-2 days Time of Disposition: 21:36
[2021-01-03 21:52] VITALS: BP 117/76; PULSE 90; TEMP 98.3
== END 2021-01-03 21:49 | disposition home or self-care (01) ==
LOC: EC 16:27
DX: N39.0 Urinary tract infection, site not specified (principal); F41.9 Anxiety disorder, unspecified; F32.9 Major depressive disorder, single episode, unspecified; F17.200 Nicotine dependence, unspecified, uncomplicated; F12.90 Cannabis use, unspecified, uncomplicated; Z90.89 Acquired absence of other organs
CPT/HCPCS: 99284; 96374; 96375; 96376; 36415; 80053; 83605; 83690; 85025; 81001; 81025; 87086; 93976; 76830; 74177; J2405; J2270; S0119; Q9967